=== PATIENT | male | born 1945 | race Caucasian/White ===

== ENCOUNTER 2016-08-29 12:37 | Emergency (ER) | payer OTHER ==
[~2016-08-29] VITALS: Ht 175.3 cm; Wt 91.0 kg
[~2016-08-29 12:37] MED LIST: CHOL1TAB76 PO; LOSA1TAB38 PO; OMEP40CA41 PO; ONDA4TAB7 SL; SIMV20TA2 PO
[2016-08-29 12:40] VITALS: TEMP 36.6; Ht 175.3 cm; Wt 91.0 kg
[2016-08-29] MEDS ORDERED: SODIUM CHLORIDE 0.9% 500ML 500 ML IV STA (13:02)
--- NOTE | 2016-08-29 13:02 | EMERGENCY ROOM VISIT NOTE ---
History Report prepared by Anitha: Clare Peng Under the Supervision of: Dr. Nitin Rodriguez M.D. First contact with patient: 12:51 Chief Complaint: CHEST PAIN Stated Complaint: Chest Pain, HYPERVENTILATION Nursing Triage Summary: Pt was shopping and had sudden chest pain and SOB. Pt went to Urgent Care in [place]. Pt reports diaphoretic and dizziness. Pt was given ASA 324mg and 2 Nitro SL. When EMS arrived, patient hyperventilating with respirations in 40s. Pt reports CP 2/10. Pt now c/o pain in back between shoulders. History of Present Illness The patient is a 71 year old male who presents to the Emergency Room with complaints of persistent chest pain that began today prior to arrival. He currently rates his discomfort as a 2/10 in severity and describes his pain as a pressure. The patient states that he was shopping today and noticed that he was becoming short of breath. He additionally notes that he became clammy and diaphoretic, noting that he just didn't feel right. The patient states that the longer it went the worse he felt and states that he went to see his PCP. He states that while there he was given 324 mg of aspirin and 2 nitroglycerin. The patient states that his chest pain has radiated to his back, but did not describe it as a tearing pain. He states that he has had a stress test in the past, but denies any cardiac history of history of a cardiac catheterization. The patient states that he last ate this morning. Source of History: patient Onset: prior to arrival Position: chest Symptom Intensity: 2/10 Quality: pressure Timing: other (persistent) Associated Symptoms: + SOB, + diaphoresis Note: Associated Symptoms: clammy, pain radiating to his back. Review of Systems See HPI for pertinent positives & negatives. A total of 10 systems reviewed and were otherwise negative. Past Medical & Surgical Medical Problems: (1) Esophageal reflux (2) Kidney stone Family History FH: cancer Social History Smoking Status: Never Smoker Alcohol Use: occasionally Marital Status: Occupation Status: retired Current/Historical Medications Scheduled Cholecalciferol (D 1999), 2,000 INTERUNIT PO HS Losartan Potassium (Cozaar), 50 MG PO QPM Omeprazole (Prilosec), 40 MG PO QAM Simvastatin (Zocor), 20 MG PO QPM Allergies Coded Allergies: Propofol (Verified Allergy, Intermediate, SEIZURE, 08/29/16) Physical Exam Vital Signs Date Time Temp Pulse Resp B/P Pulse Ox O2 Delivery O2 Flow Rate FiO2 08/29/16 15:19 61 16 130/73 98 08/29/16 14:46 58 20 133/71 97 Room Air 08/29/16 13:12 54 20 133/71 99 Room Air 08/29/16 13:11 98 Room Air 08/29/16 12:40 100 Room Air 08/29/16 12:40 36.6 62 24 125/86 100 Room Air 08/29/16 12:40 100 Room Air Physical Exam GENERAL: Patient is a hyperventilating on exam. HEAD: Normocephalic atraumatic EYES: Ocular movements intact pupils equal and react to light OROPHARYNX mucous membranes are moist no exudates present no erythema or edema present NECK: Supple no nuchal rigidity CHEST: Good equal expansion LUNGS: Clear and equal to auscultation CARDIAC: Normal S1 and S2 ABDOMEN: Soft nontender no guarding BACK: No CVA tenderness EXTREMITIES: No pain upon palpation normal muscle strength in all groups no clubbing cyanosis or edema NEURO: Patient is following commands is answering questions appropriately. Alert and oriented x3 Cranial Nerves 2-12 grossly intact Medical Decision & Procedures ER Provider Diagnostic Interpretation: X-ray results as stated below per my interpretation and radiologist interpretation. Other radiology results as stated below per my review and radiologist interpretation: CHEST ONE VIEW PORTABLE CLINICAL HISTORY: Chest pain. Hyperventilation COMPARISON STUDY: No previous studies for comparison. FINDINGS: Lung volumes are normal. There is no pneumothorax or pleural effusion. Lungs are clear. Cardiac size is at the upper limits of normal. There is no evidence of pulmonary edema. IMPRESSION: No acute cardiopulmonary findings. Electronically signed by: Roni Phillips M.D. 08/29/2016 1:57 PM Dictated Date/Time: 08/29/2016 1:[address] ANGIOGRAM OF THE CHEST COMBO CLINICAL HISTORY: Atypical chest pain. COMPARISON STUDY: Chest x-ray dated 08/29/2016. TECHNIQUE: Before and following the IV administration of 93 cc of Optiray 320, CT angiogram of the chest was performed from the thoracic inlet to the upper abdomen utilizing the dissection protocol. Images are reviewed in the axial, sagittal, and coronal planes. 3-D MIPS images are created and assessed. IV contrast was administered without complication. CT DOSE: 1031.43 mGy.cm FINDINGS: Thyroid: Imaged portions of the thyroid gland are normal in size and attenuation. Thoracic aorta: No intramural hematoma is seen on the unenhanced series. The thoracic aorta is normal in caliber and demonstrates standard 3-vessel arch anatomy. No dissection is seen. The arch vessels are widely patent. Pulmonary vasculature: The pulmonary trunk is normal in caliber. There are no central filling defects identified in the pulmonary vessels to suggest pulmonary embolus. Note that this examination was not specifically protocoled to assess for pulmonary emboli. Heart: The heart is top normal in size and without pericardial effusion. The coronary arteries are densely calcified. Lungs and pleural spaces: The lungs and pleural spaces are clear. The trachea and central airways are patent. Mediastinum: There is no mediastinal lymphadenopathy. Amber: Clear. Axillae: There is no axillary lymphadenopathy. Upper abdomen: Partially visualized upper abdominal viscera is within normal limits. Skeletal structures: No lytic or blastic bony lesions are seen. IMPRESSION: 1. There is no aneurysm or dissection involving the thoracic aorta. 2. The lungs are clear. Electronically signed by: Jack Graham M.D. 08/29/2016 2:03 PM Dictated Date/Time: 08/29/2016 1:56 PM Laboratory Results 08/29/16 12:15 Red Blood Count 4.95, Mean Corpuscular Volume 89.5, Mean Corpuscular Hemoglobin 31.3, Mean Corpuscular Hemoglobin Concent 35.0, Mean Platelet Volume 10.5, Neutrophils (%) (Auto) 37.1, Lymphocytes (%) (Auto) 50.6, Monocytes (%) (Auto) 8.8, Eosinophils (%) (Auto) 2.6, Basophils (%) (Auto) 0.7, Neutrophils # (Auto) 2.12, Lymphocytes # (Auto) 2.89, Monocytes # (Auto) 0.50, Eosinophils # (Auto) 0.15, Basophils # (Auto) 0.04 08/29/16 12:15 Test 08/29/16 12:15 08/29/16 12:52 08/29/16 13:14 White Blood Count 5.71 K/uL (4.8-10.8) Red Blood Count 4.95 M/uL (4.7-6.1) Hemoglobin 15.5 g/dL (14.0-18.0) Hematocrit 44.3 % (42-52) Mean Corpuscular Volume 89.5 fL (80-100) Mean Corpuscular Hemoglobin 31.3 pg (25-34) Mean Corpuscular Hemoglobin Concent 35.0 g/dl (32-36) Platelet Count 227 K/uL (130-400) Mean Platelet Volume 10.5 fL (7.4-10.4) Neutrophils (%) (Auto) 37.1 % Lymphocytes (%) (Auto) 50.6 % Monocytes (%) (Auto) 8.8 % Eosinophils (%) (Auto) 2.6 % Basophils (%) (Auto) 0.7 % Neutrophils # (Auto) 2.12 K/uL (1.4-6.5) Lymphocytes # (Auto) 2.89 K/uL (1.2-3.4) Monocytes # (Auto) 0.50 K/uL (0.11-0.59) Eosinophils # (Auto) 0.15 K/uL (0-0.5) Basophils # (Auto) 0.04 K/uL (0-0.2) RDW Standard Deviation 41.5 fL (36.4-46.3) RDW Coefficient of Variation 12.7 % (11.5-14.5) Immature Granulocyte % (Auto) 0.2 % Immature Granulocyte # (Auto) 0.01 K/uL (0.00-0.02) Est Creatinine Clear Calc Drug Dose 47.9 ml/min Estimated GFR () 49.9 Estimated GFR (Non- 43.0 BUN/Creatinine Ratio 15.6 (10-20) Calcium Level 9.1 mg/dl (8.5-10.1) Total Bilirubin 0.4 mg/dl (0.2-1) Direct Bilirubin < 0.1 mg/dl (0-0.2) Aspartate Amino Transf (AST/SGOT) 21 U/L (15-37) Alanine Aminotransferase (ALT/SGPT) 30 U/L (12-78) Alkaline Phosphatase 72 U/L (45-117) Total Creatine Kinase 225 U/L (39-308) Creatine Kinase MB 1.2 ng/ml (0.5-3.6) Creatine Kinase MB Ratio 0.5 (0-3.0) Troponin I < 0.015 ng/ml (0-0.045) Total Protein 7.3 gm/dl (6.4-8.2) Albumin 4.0 gm/dl (3.4-5.0) Lipase 138 U/L (73-393) Bedside Troponin I 0.000 ng/ml (0-0.045) Bedside Hemoglobin 12.9 g/dl (14.0-18.0) Bedside Hematocrit 38 % (42-52) Bedside Sodium 143 mEq/L (135-144) Bedside Potassium 3.5 mEq/L (3.3-5.0) Bedside Chloride 106 mEq/L (101-112) Bedside Total CO2 21 mEq/l (24-31) Anion Gap 20.0 mmol/L (16-25) Bedside Blood Urea Nitrogen 23 mg/dl (7-18) Bedside Creatinine 1.3 mg/dl (0.6-1.3) Bedside Glucose (other) 89 mg/dl (70-99) Bedside Ionized Calcium (Fili) 1.03 mmol/l (1.12-1.32) Labs reviewed by ED physician. Medications Administered Medications (Trade) Dose Ordered Sig/Bharati Route Start Time Stop Time Status Last Admin Dose Admin Sodium Chloride (Nss 500ml) 500 ml @ 999 mls/hr Q31M STAT IV 08/29/16 13:02 08/29/16 13:32 DC 08/29/16 13:11 999 MLS/HR ECG Indication: chest pain, SOB/dyspnea Rate (beats per minute): 59 Rhythm: sinus bradycardia Findings: no acute ischemic change, no ectopy Change: Repeat EKG, sinus bradycardia, 59 beats per minute, no ectopy, no acute ischemia , no change from previous. ED Course 1252: Past medical records reviewed. The patient was evaluated in room B8. A complete history and physical examination was performed. 1302: Ordered Sodium Chloride 500 ml @ 999 mls/hr IV. 1418: I reevaluated the patient and he is feeling 100% better. 1506: Upon reexamination the patient is resting comfortably. I discussed results and treatment plan with the patient. He verbalizes agreement and understanding. The patient is ready for discharge. Medical Decision Differential diagnosis: Etiologies such as cardiac ischemia, aortic dissection, pulmonary embolism, pneumonia, pneumothorax, musculoskeletal, infections, pericarditis, myocarditis , esophageal rupture, gastrointestinal, as well as others were entertained. This is a 71-year-old male who presents emergency department complaining of chest pressure. On my examination the patient is hyperventilating and I believe this played a been component to the his event today. He has a normal EKG upon arrival. The patient had serial troponins drawn and both troponins were labeled as 0. In addition the patient had a further EKG performed which did not show any further changes. Based on these findings as well as the fact that the patient calmed down and he was no longer had any chest pain I felt that the patient was well enough to be discharged home for follow-up with cardiology. In addition the patient also had a CAT scan of his chest which not show any acute abnormality. Patient was in agreement with the treatment plan. Impression Primary Impression: Precordial chest pain Scribe Attestation The scribe's documentation has been prepared under my direction and personally reviewed by me in its entirety. I confirm that the note above accurately reflects all work, treatment, procedures, and medical decision making performed by me. Departure Information Dispostion Home / Self-Care Referrals Maninder Napier M.D. (PCP) Forms HOME CARE DOCUMENTATION FORM, IMPORTANT VISIT INFORMATION, School Instructions, Work Instructions Patient Instructions Chest Pain - [facility], My [facility] Additional Instructions Follow up with DR Chung's office this week No strenuous activity until follow up You have been examined and treated today on an emergency basis only. This is not a substitute for, or an effort to provide, complete comprehensive medical care. It is impossible to recognize and treat all injuries or illnesses in a single emergency department visit. It is therefore important that you follow up closely with Dr Hernandez. Call as soon as possible for an appointment. Thank you for your time and consideration. I look forward to speaking with you again soon. Please don't hesitate to call us if you have any questions.
[2016-08-29 13:11] VITALS: O2SAT 98
[2016-08-29 13:13] LABS: HEMATOCRIT 44.3 % (42-52); MEAN CELL VOLUME 89.5 fL (80-100); MEAN CORPUSCULAR HEMOGLOBIN 31.3 pg (25-34); MEAN PLATELET VOLUME 10.5 fL (7.4-10.4); PLATELET COUNT 227 K/uL (130-400); RED BLOOD COUNT 4.95 M/uL (4.7-6.1); WHITE BLOOD COUNT 5.71 K/uL (4.8-10.8)
[2016-08-29 13:18] LABS: ALT/SGPT 30 U/L (12-78); AST/SGOT 21 U/L (15-37); BLOOD UREA NITROGEN 25 mg/dl (7-18); BUN/CREATININE RATIO 15.6 (10-20); CALCIUM 9.1 mg/dl (8.5-10.1); CARBON DIOXIDE 21 mmol/L (21-32); CHLORIDE 106 mmol/L (98-107); GLUCOSE 93 mg/dl (70-99); POTASSIUM 3.6 mmol/L (3.5-5.1); SODIUM 140 mmol/L (136-145)
[2016-08-29] MEDS ORDERED: LOSA50TA6 PO (13:20)
[2016-08-29 13:24] LABS: ALKALINE PHOSPHATASE 72 U/L (45-117); CKMB/CK RATIO 0.5 (0-3.0)
[2016-08-29 13:30] LABS: ISTAT CREATININE 1.3 mg/dl (0.6-1.3); ISTAT HEMOGLOBIN 12.9 g/dl (14.0-18.0); ISTAT IONIZED CALCIUM 1.03 mmol/l (1.12-1.32)
[2016-08-29 13:34] LABS: BASO % 0.7 %; BASO ABS # 0.04 K/uL (0-0.2); COMPLETE YES; EOS % 2.6 %; IG% 0.2 %; LYMPH % 50.6 %; LYMPH ABS # 2.89 K/uL (1.2-3.4); MONO % 8.8 %; NEUT % 37.1 %
--- NOTE | 2016-08-29 13:58 | DIAGNOSTIC IMAGING REPORT ---
CHEST ONE VIEW PORTABLE CLINICAL HISTORY: Chest pain. Hyperventilation COMPARISON STUDY: No previous studies for comparison. FINDINGS: Lung volumes are normal. There is no pneumothorax or pleural effusion. Lungs are clear. Cardiac size is at the upper limits of normal. There is no evidence of pulmonary edema. IMPRESSION: No acute cardiopulmonary findings. Electronically signed by: Roni Phillips M.D. 08/29/2016 1:57 PM Dictated Date/Time: 08/29/2016 1:57 PM
--- NOTE | 2016-08-29 14:04 | DIAGNOSTIC IMAGING REPORT ---
CT ANGIOGRAM OF THE CHEST COMBO CLINICAL HISTORY: Atypical chest pain. COMPARISON STUDY: Chest x-ray dated 08/29/2016. TECHNIQUE: Before and following the IV administration of 93 cc of Optiray 320, CT angiogram of the chest was performed from the thoracic inlet to the upper abdomen utilizing the dissection protocol. Images are reviewed in the axial, sagittal, and coronal planes. 3-D MIPS images are created and assessed. IV contrast was administered without complication. CT DOSE: 1031.43 mGy.cm FINDINGS: Thyroid: Imaged portions of the thyroid gland are normal in size and attenuation. Thoracic aorta: No intramural hematoma is seen on the unenhanced series. The thoracic aorta is normal in caliber and demonstrates standard 3-vessel arch anatomy. No dissection is seen. The arch vessels are widely patent. Pulmonary vasculature: The pulmonary trunk is normal in caliber. There are no central filling defects identified in the pulmonary vessels to suggest pulmonary embolus. Note that this examination was not specifically protocoled to assess for pulmonary emboli. Heart: The heart is top normal in size and without pericardial effusion. The coronary arteries are densely calcified. Lungs and pleural spaces: The lungs and pleural spaces are clear. The trachea and central airways are patent. Mediastinum: There is no mediastinal lymphadenopathy. Amber: Clear. Axillae: There is no axillary lymphadenopathy. Upper abdomen: Partially visualized upper abdominal viscera is within normal limits. Skeletal structures: No lytic or blastic bony lesions are seen. IMPRESSION: 1. There is no aneurysm or dissection involving the thoracic aorta. 2. The lungs are clear. Electronically signed by: Jack Graham M.D. 08/29/2016 2:03 PM Dictated Date/Time: 08/29/2016 1:56 PM
[2016-08-29 15:19] VITALS: BP 130/73; PULSE 61; O2SAT 98
== END 2016-08-29 15:20 | disposition home or self-care (01) ==
LOC: EDBD 12:37 → C.EDB 12:38
DX: R07.2 Precordial pain (principal); Z87.442 Personal history of urinary calculi; Z80.9 Family history of malignant neoplasm, unspecified

== ENCOUNTER 2017-08-05 13:14 | Observation (INO) | payer OTHER ==
[~2017-08-05] VITALS: Ht 175.3 cm; Wt 93.1 kg
[~2017-08-05 13:14] MED LIST changes: -LOSA1TAB38 PO; +LOSA50TA6 PO; -ONDA4TAB7 SL
[2017-08-05] MEDS ORDERED: ONDANSETRON INJ 2 MG/ML 2 ML VIAL IV STA (14:26)
[2017-08-05] MEDS ORDERED: SODIUM CHLORIDE 0.9% 1000ML 1,000 ML IV STA (14:26)
[2017-08-05 14:52] LABS: BASO % 0.2 %; BASO ABS # 0.03 K/uL (0-0.2); EOS % 0.3 %; EOS ABS # 0.04 K/uL (0-0.5); HEMATOCRIT 44.6 % (42-52); HEMOGLOBIN 15.3 g/dL (14.0-18.0); IG# 0.04 K/uL (0.00-0.02); LYMPH % 8.7 %; LYMPH ABS # 1.29 K/uL (1.2-3.4); MEAN CELL VOLUME 93.1 fL (80-100); MEAN CORPUSCULAR HEMOGLOBIN 31.9 pg (25-34); MEAN CORPUSCULAR HGB CONC 34.3 g/dl (32-36); MEAN PLATELET VOLUME 10.7 fL (7.4-10.4); MONO % 9.7 %; MONO ABS # 1.43 K/uL (0.11-0.59); NEUT % 80.8 %; NEUT ABS # 11.95 K/uL (1.4-6.5); PLATELET COUNT 158 K/uL (130-400); RED CELL DISTRIBUTION WIDTH CV 13.3 % (11.5-14.5); RED CELL DISTRIBUTION WIDTH SD 45.5 fL (36.4-46.3); WHITE BLOOD COUNT 14.78 K/uL (4.8-10.8)
[2017-08-05 15:01] LABS: ALBUMIN 3.5 gm/dl (3.4-5.0); ALT/SGPT 25 U/L (12-78); AST/SGOT 17 U/L (15-37); BLOOD UREA NITROGEN 20 mg/dl (7-18); CALCIUM 9.1 mg/dl (8.5-10.1); CARBON DIOXIDE 28 mmol/L (21-32); GLUCOSE 106 mg/dl (70-99); POTASSIUM 4.5 mmol/L (3.5-5.1); SODIUM 137 mmol/L (136-145)
--- NOTE | 2017-08-05 15:04 | DIAGNOSTIC IMAGING REPORT ---
HEAD WITHOUT CONTRAST (CT) CLINICAL HISTORY: 72 years-old Male presenting with EVALUATE ALTERED MENTAL STATUS/WEAKNESS. TECHNIQUE: Multidetector CT imaging of the head was performed without the use of intravenous contrast. IV contrast: None. A dose lowering technique was used consistent with the principles of ALARA (as low as reasonably achievable). COMPARISON: None. CT DOSE (mGy.cm): The estimated cumulative dose is 638.56 mGycm. 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 Ventricles and sulci normal in size. Brain parenchyma normal in appearance with preserved patricio-white differentiation. No mass effect or midline shift. No hemorrhage or acute territorial infarct. No extra-axial fluid collection. Thickening of the right maxillary sinus. Calvarium intact. IMPRESSION: 1. No acute intracranial abnormality. Electronically signed by: Gopal Krishnan M.D. 08/05/2017 3:03 PM Dictated Date/Time: 08/05/2017 3:01 PM
[2017-08-05 15:06] LABS: PTT PATIENT 25.3 SECONDS (21.0-31.0)
--- NOTE | 2017-08-05 15:14 | DIAGNOSTIC IMAGING REPORT ---
CHEST ONE VIEW PORTABLE CLINICAL HISTORY: EVALUATE ALTERED MENTAL STATUS/WEAKNESS dyspnea COMPARISON STUDY: 08/29/2016 FINDINGS: The bones soft tissues and hemidiaphragms are normal. The cardiomediastinal silhouette is normal. The lungs are clear. The pulmonary vasculature is normal. IMPRESSION: Negative chest. The above report was generated using voice recognition software. It may contain grammatical, syntax or spelling errors. Electronically signed by: Charles Rubio M.D. 08/05/2017 3:13 PM Dictated Date/Time: 08/05/2017 3:12 PM
[2017-08-05 15:18] LABS: ALKALINE PHOSPHATASE 89 U/L (45-117); TOTAL PROTEIN 7.7 gm/dl (6.4-8.2)
[2017-08-05] MEDS ORDERED: ACETAMINOPHEN 325 MG TAB PO PRN (16:45)
[2017-08-05] MEDS ORDERED: ONDANSETRON INJ 2 MG/ML 2 ML VIAL IV PRN (16:45)
[2017-08-05] MEDS ORDERED: NITROGLYCERIN 0.4 MG SL PER TAB CHARGE SL PRN (16:45)
[2017-08-05] MEDS ORDERED: LOSA1TAB38 PO (17:01)
--- NOTE | 2017-08-05 18:10 | History and Physical ---
History & Physical Date & Time of Service: Aug 05, 2017 at 17:02 Chief Complaint: Syncope Primary Care Physician: Maninder Napier M.D. History of Present Illness Source: patient, family, clinic records, hospital records Pt is 72 y/o M with PMH HTN, dyslipidemia, GERD, CKD III who presented to ER with c/o syncope. Pt states around noon today he was sitting in chair when he started to feel lightheaded, generalized weakness, hot, sweaty, and felt like a "band squeezing around my head, but not a GARNER". These symptoms reported for couple of minutes. His said she stepped away and her son saw pt pass out and slump over the table while sitting in chair and are unsure if pt vomited as they heard "gurgling" sound. States lasted approx a minute then pt regained consciousness and sat up and it is reported he had another syncopal episode and slumped over in chair. When pt regained consciousness they put him supine on floor and report he was pale and sweaty and confused. Denies any noted convulsions or shaking. Pt reports doesn't remember passing out. Denies falls or hitting head or hx head injury. Denies loss control bowel/bladder, biting tongue. Denies hx syncope or seizures. He ate breakfast this morning. Denies coughing/vomiting episodes prior to syncope. Pt reports past 5 days with purulent rhinorrhea, nasal congestion, sore throat, and cough. reports appetite been decreased with his URI symptoms. Reports with URI symptoms also and was around granddaughters with strep throat. He took OTC Tylenol flu/cold medicine, didn't have any today. Denies any other OTC meds or supplements. Denies ETOH or drug use, SOB, CP, palpitations. Denies FH seizures/syncope or FH sudden at young age. Denies fever/chills, N/D/C, vision changes, neck pain, CP, SOB, orthopnea, palpitations, hemoptysis, otalgia, abdominal pain, paresthesias, extremity edema, rashes, urinary symptoms. Denies hx influenza vaccine this season. In ER afebrile, P:65, BP: 119/66 - 131/73. Glucose: 103, WBC: 14. Cr: 1.7 ( baseline 1.6). negative troponin. CXR: negative. CT head negative. EKG: NSR 63, no ST elevations. Pt denies any current symptoms and no recurrent syncope episodes since ER arrival. given 1L NSS Hx stress echo 09/2016 - no ischemia, EF: 55-60%, normal LV wall motion, mild aortic valve regurgitation Past Medical/Surgical History Medical Problems: (1) CKD (chronic kidney disease), stage III Status: Chronic (2) Esophageal reflux Status: Chronic (3) HTN (hypertension) Status: Chronic (4) Hyperlipidemia Status: Chronic (5) Kidney stone Status: Chronic (6) Renal colic on right side Status: Resolved (7) Right ureteral stone Status: Resolved (8) Right ureteral stone Status: Resolved Surgical Problems: (1) Hx of appendectomy Status: Resolved (2) Hx of mastectomy Permanent Comment: for gynecomastia - 1966 Status: Resolved (3) Hx of rotator cuff surgery Status: Resolved Family History Alzheimer's disease MOTHER Cardiac disorder BROTHER (A-fib, cardiomyopathy) Diabetes mellitus FATHER BROTHER FH: cancer BROTHER (colon CA - age 70's) GRANDMOTHER (colon CA) Hypertension FATHER Social History Smoking Status: Never Smoker Smokeless Tobacco Use: No Alcohol Use: none Drug Use: none Marital Status: Occupational Status: retired Allergies Coded Allergies: Propofol (Verified Allergy, Intermediate, SEIZURE, 08/05/17) Home Medications Scheduled Cholecalciferol (D 1999), 2,000 INTERUNIT PO HS Losartan Potassium (Cozaar), 0.5 TAB PO DAILY Omeprazole (Prilosec), 40 MG PO QAM Simvastatin (Zocor), 20 MG PO QPM Review of Systems Constitutional: No weight loss Eyes: No worsening of vision, No eye pain, No redness, No discharge, No diplopia ENT: + problem reported (see HPI), No hearing loss, No unusual epistaxis, No trouble swallowing Respiratory: + problem reported (see HPI) Cardiovascular: No chest pain, No orthopnea, No PND, No edema, No palpitations Abdomen: No GI bleeding Musculoskeletal: No joint pain, No muscle pain, No swelling, No calf pain Genitourinary - Male: No hematuria, No dysuria, No urinary frequency, No urinary urgency, No urinary hesitancy, No urinary retention, No urinary incontinence Neurologic: No numbness/tingling, No vertigo Psychiatric: No depression symptoms, No anxiety Endocrine: No excessive thirst, No excessive urination Hematologic / Lymphatic: No abnormal bleeding/bruising, No clotting problems, No night sweats Integumentary: No rash, No itch Physical Exam Vital Signs Date Time Temp Pulse Resp B/P (MAP) Pulse Ox O2 Delivery O2 Flow Rate FiO2 08/05/17 15:40 67 20 131/73 97 Room Air 08/05/17 14:42 65 128/67 71 144/79 72 134/74 08/05/17 13:34 70 08/05/17 13:27 98 Room Air 08/05/17 13:27 37.2 72 16 119/66 98 Room Air General Appearance: WD/WN, no apparent distress Head: normocephalic, atraumatic Eyes: normal inspection, PERRL, EOMI, sclerae normal ENT: hearing grossly normal, + pertinent finding (Bilateral canals with cerumen , partial visualization TM's and non-bulging, non-erythematous. no significant rhinorrhea, no epistaxis. pharynx with slight erythema, no exudate, uvula midline. tongue without lacerations or bleeding, mucous membranes moist) Neck: supple, no adenopathy, no JVD, no carotid bruits, trachea midline, + pertinent finding (non-tender, ROM intact) Respiratory/Chest: chest non-tender, lungs clear, normal breath sounds, no respiratory distress, no accessory muscle use Cardiovascular: regular rate, rhythm, no edema, no murmur, normal peripheral pulses Abdomen/GI: normal bowel sounds, non tender, soft Back: normal inspection, no CVA tenderness Extremities/Musculoskelatal: normal inspection, no calf tenderness, normal capillary refill, normal range of motion, non-tender, pelvis stable 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, alert, normal mood/affect, oriented x 3 Skin: normal color, warm/dry, no rash Diagnostics Laboratory Results Results Past 24 Hours Test 08/05/17 13:35 08/05/17 14:34 08/05/17 14:45 Range/Units White Blood Count 14.78 4.8-10.8 K/uL Red Blood Count 4.79 4.7-6.1 M/uL Hemoglobin 15.3 14.0-18.0 g/dL Hematocrit 44.6 42-52 % Mean Corpuscular Volume 93.1 80-100 fL Mean Corpuscular Hemoglobin 31.9 25-34 pg Mean Corpuscular Hemoglobin Concent 34.3 32-36 g/dl Platelet Count 158 130-400 K/uL Mean Platelet Volume 10.7 7.4-10.4 fL Neutrophils (%) (Auto) 80.8 % Lymphocytes (%) (Auto) 8.7 % Monocytes (%) (Auto) 9.7 % Eosinophils (%) (Auto) 0.3 % Basophils (%) (Auto) 0.2 % Neutrophils # (Auto) 11.95 1.4-6.5 K/uL Lymphocytes # (Auto) 1.29 1.2-3.4 K/uL Monocytes # (Auto) 1.43 0.11-0.59 K/uL Eosinophils # (Auto) 0.04 0-0.5 K/uL Basophils # (Auto) 0.03 0-0.2 K/uL RDW Standard Deviation 45.5 36.4-46.3 fL RDW Coefficient of Variation 13.3 11.5-14.5 % Immature Granulocyte % (Auto) 0.3 % Immature Granulocyte # (Auto) 0.04 0.00-0.02 K/uL Prothrombin Time 10.0 9.0-12.0 SECONDS Prothromb Time International Ratio 1.0 0.9-1.1 Activated Partial Thromboplast Time 25.3 21.0-31.0 SECONDS Partial Thromboplastin Ratio 1.0 D-Dimer 320 0-500 ug/L FEU Sodium Level 137 136-145 mmol/L Potassium Level 4.5 3.5-5.1 mmol/L Chloride Level 105 98-107 mmol/L Carbon Dioxide Level 28 21-32 mmol/L Anion Gap 4.0 3-11 mmol/L Blood Urea Nitrogen 20 7-18 mg/dl Creatinine 1.70 0.60-1.40 mg/dl Est Creatinine Clear Calc Drug Dose 45.1 ml/min Estimated GFR () 46.0 Estimated GFR (Non- 39.7 BUN/Creatinine Ratio 12.0 10-20 Random Glucose 106 70-99 mg/dl Calcium Level 9.1 8.5-10.1 mg/dl Magnesium Level 2.4 1.8-2.4 mg/dl Total Bilirubin 0.6 0.2-1 mg/dl Direct Bilirubin < 0.1 0-0.2 mg/dl Aspartate Amino Transf (AST/SGOT) 17 15-37 U/L Alanine Aminotransferase (ALT/SGPT) 25 12-78 U/L Alkaline Phosphatase 89 45-117 U/L Troponin I < 0.015 0-0.045 ng/ml Total Protein 7.7 6.4-8.2 gm/dl Albumin 3.5 3.4-5.0 gm/dl Thyroid Stimulating Hormone (TSH) 0.584 0.300-4.500 uIu/ml Bedside Glucose 84 70-99 mg/dl Urine Color DK YELLOW Urine Appearance CLEAR CLEAR Urine pH 5.0 4.5-7.5 Urine Specific Byron 1.030 1.000-1.030 Urine Protein 1+ NEG Urine Glucose (UA) NEG NEG Urine Ketones TRACE NEG Urine Occult Blood NEG NEG Urine Nitrite NEG NEG Urine Bilirubin NEG NEG Urine Urobilinogen NEG NEG Urine Leukocyte Esterase NEG NEG Urine WBC (Auto) 1-5 0-5 /hpf Urine RBC (Auto) 0-4 0-4 /hpf Urine Hyaline Casts (Auto) 10-30 0-5 /lpf Urine Epithelial Cells (Auto) 10-20 0-5 /lpf Urine Bacteria (Auto) NEG NEG Urine Pathogenic Casts 0-3 GRANULAR CASTS 0 /lpf Urine Sperm (Auto) PRESENT NOT PRESENT Diagnostic Radiology CXR: IMPRESSION: Negative chest. HEAD CT: IMPRESSION: 1. No acute intracranial abnormality. EKG EKG: NSR, rate 63, no ST elevations EKG read by live study manager: Normal sinus rhythm Left axis deviation Abnormal ECG When compared with ECG of 29-AUG-2016 14:41, No significant change was found Confirmed by Roby Valdivia ([id number]) on 08/05/2017 5:25:18 PM Impression Assessment and Plan SYNCOPE Pt with syncope x 2 during seated position with questionable vomiting with post confusion and prodrome lightheaded, diaphoresis. No CP, palpitations, no incontinence. EKG: NSR, rate 63. negative troponin. negative CXR. negative CT Head. WBC: 14. No significant orthostatic hypotension, glucose: 106. hx stress echo 09/2016: negative ischemia, EF: 55-60%, mild aortic valve regurg. -tele to monitor for any arrhythmias -trend cardiac enzymes -repeat EKG in am -NSS 75ml/hr -continue to monitor -will hold on further neuro imaging at this time URI Pt with cough, sore throat, rhinorrhea x 4-5 days with ill contacts with URI symptoms. WBC: 14. No CP, SOB, no adventitious breath sounds on exam. Negative CXR. suspect viral URI, however continue to monitor with possible vomiting episode today with syncope. -pending influenza swab -pending strep swab -cbc, prp in am HTN -continue losartan DYSLIPIDEMIA Lipid panel 05/22/17: total: 188, LDL: 91, HDL: 34, Triglycerides: 317 -continue simvastatin GERD -continue PPI CKD III Cr: 1.7 (baseline 1.6) -continue to monitor -avoid nephrotoxic agents when possible DVT PROPHYLAXIS -lovenox DISPOSITION -admit tele -Full Code as per discussion with pt -Follows with Dr Napier for routine care Pt was seen with Dr Ling. See addendum Level of Care Telemetry Resuscitation Status FULL RESUSCITATION VTE Prophylaxis VTE Risk Assessment Done? Y/N: Yes Risk Level: Moderate Given or contraindicated: Enoxaparin (Lovenox)SQ Note ATTENDING ADDENDUM Record reviewed. Patient interviewed and examined. Care coordinated with Josefa Chaudhari PA-C. Please refer to her documentation for patient's history. Briefly, 72 YO male with history of hypertension and CKD III. 2 syncopal episodes today witnessed by his family. Episodes associated with diaphoresis and transient confusion. No apparent seizure activity. First episode was associated with vomiting. Recent pharyngitis, rhinorrhea, cough treated with nonprescription cold / cough medication EXAM: General- no distress VS- as noted HEENT- anicteric; mild pharyngeal erythema without exudate Neck- supple Lungs- clear to A&P Heart- RRR Abdomen- + BS, soft, nontender Extremities- no pretibial edema or calf tenderness Neuro- alert, oriented; PERRL, EOMI; no facial palsy; no dysarthria; motor strength upper and lower extremities 5/5; patellar DTR's 1/2 bilat; plantar reflexes downgoing DATA: WBC 14,780 Hgb 15.3 BUN 20, creatinine 1.7. Trop < 0.015. Other lab studies as noted. CXR neg. CT head neg except for thickening of right maxillary sinus. EKG performed at 13:35 reviewed and demonstrated NSR at 63 / minute, left axis deviation, no acute ST or T-wave changes. ASSESSMENT AND PLAN: Syncope, likely vasovagal. Monitor for arrhythmias. May be somewhat volume depleted. CKD III with baseline creatinine of 1.4 - 1.6; creatine today 1.7. Received IV fluids. Recent pharyngitis, cough. 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 Group A Strep screen negative. Please refer to GO Escalante's documentation for discussion of other issues. Pk Ling MD . Additional Copies To Maninder Napier M.D.
[2017-08-05 18:57] VITALS: BP_SYST 151; BP_SYST 153; BP_SYST 195; BP_DIAS 81; BP_DIAS 82; BP_DIAS 84; PULSE 67; TEMP 37.2; O2SAT 97
[2017-08-05] MEDS ORDERED: SODIUM CHLORIDE 0.9% 1000ML 1,000 ML IV SCH (19:00)
[2017-08-05 19:04] VITALS: BMI 27.7
[2017-08-05 19:08] VITALS: BMI 30.2
[2017-08-05 19:13] VITALS: BP 153/82; PULSE 67; TEMP 37.2; O2SAT 97; Ht 175.3 cm; Wt 93.1 kg
[2017-08-05 20:01] LABS: INFLUENZA B ANTIGEN Neg for Influ B (NEG)
[2017-08-05 20:15] LABS: CKMB < 0.5 ng/ml (0.5-3.6)
[2017-08-05 20:55] LABS: INFLUENZA A PCR Neg for Influ A (NEG); INFLUENZA B PCR Neg for Influ B (NEG)
[2017-08-05] MEDS ORDERED: SIMVASTATIN 20 MG TAB PO SCH (21:00)
[2017-08-05] MEDS ORDERED: CHOLECALCIFEROL 1000 INTER.UNIT TAB PO SCH (21:00)
[2017-08-05] MEDS ORDERED: ENOXAPARIN 40 MG/0.4 ML SYR SC SCH (21:00)
--- NOTE | 2017-08-05 21:29 | EMERGENCY ROOM VISIT NOTE ---
History Report prepared by Anitha: Lynsey Jenkins Under the Supervision of: Dr. David Schaefer D.O. First contact with patient: 14:18 Chief Complaint: SYNCOPE Stated Complaint: SYNCOPE Nursing Triage Summary: pt's reports pt was feeling dizzy sitting in chair she was going to start car totake him home and son started say dad, dad, pt had syncopal episode head on desk and pt was gurgling. pt's head moved back and still gurgling placed on floor and pt was shakey. pt prior to syncopal episode was syaimng he felt dizzy and felt like band around head, he was feeling hot. unsure about fever but hasa had cold sx with cough and congestion. 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 History of Present Illness The patient is a 72 year old male who presents to the Emergency Room with complaints of an episode of syncope occurring prior to arrival. The patient's states that he was sitting at a desk and told her he felt dizzy. She states that she told her son to get the car ready and they were just going to go home. She states that he has been getting over a cold with cough, sore throat , and congestion for the past 4 days. The states that when she took a few steps away, he lost consciousness. She reports that he vomited while out. She reports that they sat him back up in the chair, his eyes opened, and he passed out again. The states that at this time her son and her put him on the floor. She states that when he came to he was pale, diaphoretic, felt hot, felt clammy, was disoriented, and did not remember what happened. She states that she made him stay in the floor till EMS arrived. The patient notes that this has never happened before. He states that he remembers right before it happened he felt really hot and like there was a band around his head. The patient complains of being fatigued over the past few days. The patient denies headache , chest pain, neck pain, nausea, diarrhea, and urinary symptoms. Source of History: patient Onset: prior to arrival Position: other (global) Quality: other (disoriented) Timing: other (episode) Associated Symptoms: + LOC, + diaphoresis, + sorethroat, + cough, + vomiting , + fatigue, No headache, No neck pain, No chest pain, No SOB, No nausea, No diarrhea, No urinary symptoms Note: The patient complains of dizziness and congestion. The complains of the patient feeling clammy, looking pale, being disoriented, and feeling warm. Review of Systems See HPI for pertinent positives & negatives. A total of 10 systems reviewed and were otherwise negative. Past Medical & Surgical Medical Problems: (1) CKD (chronic kidney disease), stage III (2) Esophageal reflux (3) HTN (hypertension) (4) Hyperlipidemia (5) Kidney stone (6) Renal colic on right side (7) Right ureteral stone (8) Right ureteral stone Surgical Problems: (1) Hx of appendectomy (2) Hx of mastectomy (3) Hx of rotator cuff surgery Family History FH: cancer Social History Smoking Status: Never Smoker Alcohol Use: occasionally Marital Status: Housing Status: lives with significant other Occupation Status: retired Current/Historical Medications Scheduled Cholecalciferol (D 1999), 2,000 INTERUNIT PO HS Losartan Potassium (Cozaar), 0.5 TAB PO DAILY Omeprazole (Prilosec), 40 MG PO QAM Simvastatin (Zocor), 20 MG PO QPM Allergies Coded Allergies: Propofol (Verified Allergy, Intermediate, SEIZURE, 08/05/17) Physical Exam Vital Signs Date Time Temp Pulse Resp B/P (MAP) Pulse Ox O2 Delivery O2 Flow Rate FiO2 08/05/17 16:31 129/75 08/05/17 16:14 64 97 08/05/17 16:00 134/74 08/05/17 15:44 60 94 08/05/17 15:40 67 20 131/73 97 Room Air 08/05/17 15:39 131/73 08/05/17 14:42 65 128/67 71 144/79 72 134/74 08/05/17 14:36 134/74 08/05/17 14:35 128/67 08/05/17 14:30 128/68 08/05/17 14:14 66 5 94 08/05/17 14:00 127/70 08/05/17 13:44 66 14 96 08/05/17 13:34 70 08/05/17 13:31 127/76 08/05/17 13:27 98 Room Air 08/05/17 13:27 37.2 72 16 119/66 98 Room Air Physical Exam GENERAL: Sitting up in bed, alert, well appearing, no distress, non-toxic HEAD: Normocephalic. Atraumatic. EYE EXAM: normal conjunctiva. OROPHARYNX: no exudate, no erythema, lips, buccal mucosa, and tongue normal and mucous membranes are moist NECK: supple, no nuchal rigidity, no adenopathy, non-tender LUNGS: Clear to auscultation. Normal chest wall mechanics HEART: no murmurs, S1 normal and S2 normal ABDOMEN: abdomen soft, non-tender, normo-active bowel sounds, no masses, no rebound or guarding. BACK: Back is symmetrical on inspection and there is no deformity, no midline tenderness, no CVA tenderness. SKIN: no rashes and no bruising UPPER EXTREMITIES: upper extremities are grossly normal. LOWER EXTREMITIES: No pitting edema. NEURO EXAM: Normal sensorium, cranial nerves II-XII intact, normal speech, no weakness of arms, no weakness of legs. No drift. Finger to nose intact. Gross sensation intact. Rapid alternating movements of upper extremities intact. Medical Decision & Procedures ER Provider Diagnostic Interpretation: Radiology results as stated below per my review and the radiologist's interpretation: CHEST ONE VIEW PORTABLE CLINICAL HISTORY: EVALUATE ALTERED MENTAL STATUS/WEAKNESS dyspnea COMPARISON STUDY: 08/29/2016 FINDINGS: The bones soft tissues and hemidiaphragms are normal. The cardiomediastinal silhouette is normal. The lungs are clear. The pulmonary vasculature is normal. IMPRESSION: Negative chest. The above report was generated using voice recognition software. It may contain grammatical, syntax or spelling errors. Electronically signed by: Charles Rubio M.D. 08/05/2017 3:13 PM Dictated Date/Time: 08/05/2017 3:12 PM HEAD WITHOUT CONTRAST (CT) CLINICAL HISTORY: 72 years-old Male presenting with EVALUATE ALTERED MENTAL STATUS/WEAKNESS. TECHNIQUE: Multidetector CT imaging of the head was performed without the use of intravenous contrast. IV contrast: None. A dose lowering technique was used consistent with the principles of ALARA (as low as reasonably achievable). COMPARISON: None. CT DOSE (mGy.cm): The estimated cumulative dose is 638.56 mGycm. FINDINGS: Napper Tender topogram: Unremarkable. Ventricles and sulci normal in size. Brain parenchyma normal in appearance with preserved patricio-white differentiation. No mass effect or midline shift. No hemorrhage or acute territorial infarct. No extra-axial fluid collection. Thickening of the right maxillary sinus. Calvarium intact. IMPRESSION: 1. No acute intracranial abnormality. Electronically signed by: Gopal Krishnan M.D. 08/05/2017 3:03 PM Dictated Date/Time: 08/05/2017 3:01 PM Laboratory Results 08/05/17 13:35 Red Blood Count 4.79, Mean Corpuscular Volume 93.1, Mean Corpuscular Hemoglobin 31.9, Mean Corpuscular Hemoglobin Concent 34.3, Mean Platelet Volume 10.7, Neutrophils (%) (Auto) 80.8, Lymphocytes (%) (Auto) 8.7, Monocytes (%) (Auto) 9.7, Eosinophils (%) (Auto) 0.3, Basophils (%) (Auto) 0.2, Neutrophils # (Auto) 11.95, Lymphocytes # (Auto) 1.29, Monocytes # (Auto) 1.43, Eosinophils # (Auto) 0.04, Basophils # (Auto) 0.03 08/05/17 13:35 Test 08/05/17 13:35 08/05/17 14:34 08/05/17 14:45 White Blood Count 14.78 K/uL (4.8-10.8) Red Blood Count 4.79 M/uL (4.7-6.1) Hemoglobin 15.3 g/dL (14.0-18.0) Hematocrit 44.6 % (42-52) Mean Corpuscular Volume 93.1 fL (80-100) Mean Corpuscular Hemoglobin 31.9 pg (25-34) Mean Corpuscular Hemoglobin Concent 34.3 g/dl (32-36) Platelet Count 158 K/uL (130-400) Mean Platelet Volume 10.7 fL (7.4-10.4) Neutrophils (%) (Auto) 80.8 % Lymphocytes (%) (Auto) 8.7 % Monocytes (%) (Auto) 9.7 % Eosinophils (%) (Auto) 0.3 % Basophils (%) (Auto) 0.2 % Neutrophils # (Auto) 11.95 K/uL (1.4-6.5) Lymphocytes # (Auto) 1.29 K/uL (1.2-3.4) Monocytes # (Auto) 1.43 K/uL (0.11-0.59) Eosinophils # (Auto) 0.04 K/uL (0-0.5) Basophils # (Auto) 0.03 K/uL (0-0.2) RDW Standard Deviation 45.5 fL (36.4-46.3) RDW Coefficient of Variation 13.3 % (11.5-14.5) Immature Granulocyte % (Auto) 0.3 % Immature Granulocyte # (Auto) 0.04 K/uL (0.00-0.02) Prothrombin Time 10.0 SECONDS (9.0-12.0) Prothromb Time International Ratio 1.0 (0.9-1.1) Activated Partial Thromboplast Time 25.3 SECONDS (21.0-31.0) Partial Thromboplastin Ratio 1.0 D-Dimer 320 ug/L FEU (0-500) Anion Gap 4.0 mmol/L (3-11) Est Creatinine Clear Calc Drug Dose 45.1 ml/min Estimated GFR () 46.0 Estimated GFR (Non- 39.7 BUN/Creatinine Ratio 12.0 (10-20) Calcium Level 9.1 mg/dl (8.5-10.1) Magnesium Level 2.4 mg/dl (1.8-2.4) Total Bilirubin 0.6 mg/dl (0.2-1) Direct Bilirubin < 0.1 mg/dl (0-0.2) Aspartate Amino Transf (AST/SGOT) 17 U/L (15-37) Alanine Aminotransferase (ALT/SGPT) 25 U/L (12-78) Alkaline Phosphatase 89 U/L (45-117) Total Protein 7.7 gm/dl (6.4-8.2) Albumin 3.5 gm/dl (3.4-5.0) Thyroid Stimulating Hormone (TSH) 0.584 uIu/ml (0.300-4.500) Bedside Glucose 84 mg/dl (70-99) Urine Color DK YELLOW Urine Appearance CLEAR (CLEAR) Urine pH 5.0 (4.5-7.5) Urine Specific [place] 1.030 (1.000-1.030) Urine Protein 1+ (NEG) Urine Glucose (UA) NEG (NEG) Urine Ketones TRACE (NEG) Urine Occult Blood NEG (NEG) Urine Nitrite NEG (NEG) Urine Bilirubin NEG (NEG) Urine Urobilinogen NEG (NEG) Urine Leukocyte Esterase NEG (NEG) Urine WBC (Auto) 1-5 /hpf (0-5) Urine RBC (Auto) 0-4 /hpf (0-4) Urine Hyaline Casts (Auto) 10-30 /lpf (0-5) Urine Epithelial Cells (Auto) 10-20 /lpf (0-5) Urine Bacteria (Auto) NEG (NEG) Urine Pathogenic Casts 0-3 GRANULAR CASTS /lpf (0) Urine Sperm (Auto) PRESENT (NOT PRESENT) Laboratory results per my review. Medications Administered Medications (Trade) Dose Ordered Sig/Bharati Route Start Time Stop Time Status Last Admin Dose Admin Sodium Chloride 1,000 ml @ 999 mls/hr Q1H1M STAT IV 08/05/17 14:26 08/05/17 15:26 DC 08/05/17 15:40 999 MLS/HR ECG Indication: syncope Rate (beats per minute): 63 Rhythm: sinus rhythm Findings: left axis deviation, no ectopy, other (normal intervals) ED Course ED COURSE: Vital signs were reviewed and showed normal vitals. The patients medical record was reviewed The above diagnostic studies were performed and reviewed. ED treatments and interventions as stated above. 1419: The patient was evaluated in room C4. A complete history and physical examination was performed. 1426: Ordered Zofran Inj 4 mg IV, NSS 1000 ml @ 99 mls/hr IV. 1545: Upon reevaluation, the patient is resting comfortably.I discussed my findings with the patient and he understands and agrees with the treatment plan. 1556: I reviewed the patient's case with the Madeline HADDAD. They will evaluate the patient for further management. Based on the patients age, coexisting illnesses, exam and lab findings the decision to treat as an inpatient was made. The patient remained stable while under my care. The patient will be evaluated for further management. Medical Decision Differential diagnosis includes etiologies such as vasovagal event, infection, hypoglycemia, electrolyte abnormalities, cardiac sources, intracerebral event, toxicologic, neurologic, as well as others were entertained. Patient is a 72-year-old male who presents to ER for 2 episodes of syncope. He has never had this before. Following passing out he had several episodes of vomiting. Patient is currently back to his baseline. No history of seizure and there is no shaking during this episode. It was witnessed. CBC shows a mild leukocytosis. Could be secondary to vomiting. BMP with a creatinine 1.7. LFTs, bilirubin and troponin was normal. UA was negative along with influenza. CT head and chest x-ray was unremarkable. EKG was nondiagnostic. Based on symptoms I did discuss with internal medicine for observation with his age and 2 episodes syncope. Medication Reconcilliation Current Medication List: was personally reviewed by me Blood Pressure Screening Patient's blood pressure: Normal blood pressure Blood pressure disposition: Did not require urgent referral Consults Time Called: 1540 Consulting Physician: Madeline HADDAD Returned Call: 1555 I reviewed the patient's case with the Madeline HADDAD. They will evaluate the patient for further management. Impression Primary Impression: Syncope Scribe Attestation The scribe's documentation has been prepared under my direction and personally reviewed by me in its entirety. I confirm that the note above accurately reflects all work, treatment, procedures, and medical decision making performed by me. Departure Information Dispostion Being Evaluated By Hospitalist Referrals Maninder Napier M.D. (PCP) Patient Instructions My [facility] Problem Qualifiers Primary Impression: Syncope Syncope type: unspecified Qualified Codes: R55 - Syncope and collapse
[2017-08-05] MEDS ORDERED: IV FLUIDS COMPLETED PRN (21:45)
[2017-08-05 23:04] VITALS: BP_SYST 128; BP_SYST 151; BP_SYST 155; BP_DIAS 79; BP_DIAS 83; PULSE 74; PULSE 80; PULSE 98; TEMP 37.5; O2SAT 91
[2017-08-06] VITALS (7 sets, daily range): BP systolic 126–156; BP diastolic 68–83; PULSE 56–72; TEMP 36.8–37.7; O2SAT 94–96
[2017-08-06 05:46] LABS: BASO % 0.3 %; BASO ABS # 0.03 K/uL (0-0.2); EOS % 1.2 %; EOS ABS # 0.14 K/uL (0-0.5); HEMATOCRIT 42.2 % (42-52); HEMOGLOBIN 14.2 g/dL (14.0-18.0); IG# 0.05 K/uL (0.00-0.02); LYMPH % 18.5 %; LYMPH ABS # 2.13 K/uL (1.2-3.4); MEAN CELL VOLUME 93.6 fL (80-100); MEAN CORPUSCULAR HEMOGLOBIN 31.5 pg (25-34); MEAN CORPUSCULAR HGB CONC 33.6 g/dl (32-36); MONO % 7.6 %; MONO ABS # 0.87 K/uL (0.11-0.59); PLATELET COUNT 153 K/uL (130-400); RED CELL DISTRIBUTION WIDTH CV 13.4 % (11.5-14.5); RED CELL DISTRIBUTION WIDTH SD 45.9 fL (36.4-46.3); WHITE BLOOD COUNT 11.52 K/uL (4.8-10.8)
[2017-08-06 06:10] LABS: CALCIUM 8.5 mg/dl (8.5-10.1); CREATININE 1.44 mg/dl (0.60-1.40); POTASSIUM 4.5 mmol/L (3.5-5.1)
[2017-08-06] MEDS ORDERED: PANTOprazole SOD 40 MG TAB PO SCH (09:00)
[2017-08-06] MEDS ORDERED: LOSARTAN POTASSIUM 50 MG TAB PO SCH (09:00)
--- NOTE | 2017-08-06 17:54 | Progress Note ---
Medicine Progress Note Date & Time of Visit: Aug 06, 2017 at 09:38. Subjective Pt was seen and examined Lying in bed with no distress Pt said that he feels fine He was walking in the hallway with no discomfort Denies any chest pain, palpitation, dizziness and SOB Objective Last 8 Hrs Date Time Temp Pulse Resp B/P (MAP) Pulse Ox O2 Delivery O2 Flow Rate FiO2 08/06/17 17:21 37.1 66 20 95 Room Air 08/06/17 16:02 Room Air 08/06/17 15:30 37.1 61 20 135/68 (90) 95 Room Air 66 133/70 (91) 137/69 (91) 08/06/17 12:00 94 Room Air 08/06/17 11:58 36.8 56 20 126/74 (91) 96 Room Air 56 Physical Exam: General- No acute distress Head- atraumatic Eyes- PERRL, EOMI ENT- oropharynx clear Neck- supple, no JVD Lungs- clear to auscultation Heart- regular rhythm Abdomen- normal bowel sounds, soft Extremities- no calf tenderness Neuro- alert, oriented x 3; PERRL, EOMI; no facial palsy; no dysarthria Skin- warm & dry Laboratory Results: Last 24 Hours Test 08/05/17 19:02 08/05/17 19:33 08/06/17 01:31 08/06/17 05:29 Influenza Type A (RT-PCR) Neg for Influ A Influenza Type A Antigen Neg for Influ A Influenza Type B Antigen Neg for Influ B Influenza Type B (RT-PCR) Neg for Influ B Total Creatine Kinase 73 U/L Creatine Kinase MB < 0.5 ng/ml Creatine Kinase MB Ratio Troponin I < 0.015 ng/ml < 0.015 ng/ml White Blood Count 11.52 K/uL Red Blood Count 4.51 M/uL Hemoglobin 14.2 g/dL Hematocrit 42.2 % Mean Corpuscular Volume 93.6 fL Mean Corpuscular Hemoglobin 31.5 pg Mean Corpuscular Hemoglobin Concent 33.6 g/dl Platelet Count 153 K/uL Mean Platelet Volume 10.0 fL Neutrophils (%) (Auto) 72.0 % Lymphocytes (%) (Auto) 18.5 % Monocytes (%) (Auto) 7.6 % Eosinophils (%) (Auto) 1.2 % Basophils (%) (Auto) 0.3 % Neutrophils # (Auto) 8.30 K/uL Lymphocytes # (Auto) 2.13 K/uL Monocytes # (Auto) 0.87 K/uL Eosinophils # (Auto) 0.14 K/uL Basophils # (Auto) 0.03 K/uL RDW Standard Deviation 45.9 fL RDW Coefficient of Variation 13.4 % Immature Granulocyte % (Auto) 0.4 % Immature Granulocyte # (Auto) 0.05 K/uL Sodium Level 139 mmol/L Potassium Level 4.5 mmol/L Chloride Level 106 mmol/L Carbon Dioxide Level 29 mmol/L Anion Gap 4.0 mmol/L Blood Urea Nitrogen 19 mg/dl Creatinine 1.44 mg/dl Est Creatinine Clear Calc Drug Dose 53.0 ml/min Estimated GFR () 56.2 Estimated GFR (Non- 48.5 BUN/Creatinine Ratio 12.9 Random Glucose 105 mg/dl Calcium Level 8.5 mg/dl Assessment & Plan SYNCOPE Mostly vasovagal CT head showed no acute intracranial abnormality. No arrhythmia on telemonitor Troponin negative Clinically stable URI Flu test negative strep swab negative WBC trending down Symptoms improved HTN -continue losartan Diarrhea Improved On IVF DYSLIPIDEMIA Lipid panel 05/22/17: total: 188, LDL: 91, HDL: 34, Triglycerides: 317 -continue simvastatin GERD -continue PPI CKD III Cr: 1.7 (baseline 1.6) Creatine improved to 1.4 avoid nephrotoxic agents when possible DVT PROPHYLAXIS -lovenox DISPOSITION Will discharge home today Follow up with Dr. Napier on 08/12 @ 11:05 am Current Inpatient Medications: Current Inpatient Medications Medications (Trade) Dose Ordered Sig/Bharati Route Start Time Stop Time Status Last Admin Dose Admin Acetaminophen (Tylenol Tab) 650 mg Q4H PRN PO 08/05/17 16:45 09/04/17 16:44 08/06/17 07:34 650 MG Ondansetron HCl (Zofran Inj) 4 mg Q6H PRN IV 08/05/17 16:45 09/04/17 16:44 Nitroglycerin (Nitrostat Tab) 0.4 mg UD PRN SL 08/05/17 16:45 09/04/17 16:44 Losartan Potassium (coZAAR TAB) 50 mg DAILY PO 08/06/17 09:00 09/05/17 08:59 08/06/17 07:33 50 MG Simvastatin (Zocor Tab) 20 mg QPM PO 08/05/17 21:00 09/04/17 20:59 08/05/17 20:52 20 MG Cholecalciferol (Vitamin D Tab) 2,000 inter.unit HS PO 08/05/17 21:00 09/04/17 20:59 08/05/17 20:53 2,000 INTER.UNIT Pantoprazole Sodium (Protonix Tab) 40 mg QAM PO 08/06/17 09:00 09/05/17 08:59 08/06/17 07:33 40 MG Enoxaparin Sodium (Lovenox Inj) 40 mg HS SC 08/05/17 21:00 09/04/17 20:59 08/05/17 20:53 40 MG Miscellaneous (Iv Fluids Completed) 1 ea PRN PRN N/A 08/05/17 21:45 08/05/18 21:44
--- NOTE | 2017-08-06 17:56 | Discharge Instructions ---
Discharge Instructions Date of Service Aug 06, 2017. Admission Reason for Admission: Syncope Discharge Discharge Diagnosis / Problem: Syncope Discharge Goals Goal(s): Decrease discomfort, Improve function, Improve disease control Activity Recommendations Activity Limitations: resume your previous activity . Instructions / Follow-Up Instructions / Follow-Up Follow up with your primary care provider Dr. Napier on 08/12 @ 11:05 am Fall precaution Current Hospital Diet Patient's current hospital diet: AHA Diet (Heart Healthy) Discharge Diet Recommended Diet: AHA Diet (Heart Healthy) Pending Studies Studies pending at discharge: no Medical Emergencies . Who to Call and When: Medical Emergencies: If at any time you feel your situation is an emergency, please call 911 immediately. . Non-Emergent Contact Non-Emergency issues call your: Primary Care Provider Call Non-Emergent contact if: you have a fever, you have any medication questions . . "Provider Documentation" section prepared by Ajay Fowler. . VTE Core Measure Inpt VTE Proph given/why not?: Enoxaparin (Lovenox)SQ
[2017-08-06] MEDS ORDERED: ORG200 PO (17:57)
--- NOTE | 2017-08-10 22:38 | Discharge Summary ---
Discharge Summary Date of Service Aug 10, 2017. Discharge Summary Admission Date: Aug 05, 2017 at 16:42 Discharge Date: Aug 06, 2017 Discharge Disposition: Home Principal Diagnosis: SYNCOPE Secondary Diagnoses/Problems: URI HTN DIARRHEA CKD STAGE 3 DYSLIPIDEMIA Procedures: [~ rep ct add3]] HEAD WITHOUT CONTRAST (CT) CLINICAL HISTORY: 72 years-old Male presenting with EVALUATE ALTERED MENTAL STATUS/WEAKNESS. TECHNIQUE: Multidetector CT imaging of the head was performed without the use of intravenous contrast. IV contrast: None. A dose lowering technique was used consistent with the principles of ALARA (as low as reasonably achievable). COMPARISON: None. CT DOSE (mGy.cm): The estimated cumulative dose is 638.56 mGycm. FINDINGS: [place] topogram: Unremarkable. Ventricles and sulci normal in size. Brain parenchyma normal in appearance with preserved patricio-white differentiation. No mass effect or midline shift. No hemorrhage or acute territorial infarct. No extra-axial fluid collection. Thickening of the right maxillary sinus. Calvarium intact. IMPRESSION: 1. No acute intracranial abnormality. Electronically signed by: Gopal Krishnan M.D. 08/05/2017 3:03 PM Dictated Date/Time: 08/05/2017 3:01 PM [~ rep ct add3]] CHEST ONE VIEW PORTABLE CLINICAL HISTORY: EVALUATE ALTERED MENTAL STATUS/WEAKNESS dyspnea COMPARISON STUDY: 08/29/2016 FINDINGS: The bones soft tissues and hemidiaphragms are normal. The cardiomediastinal silhouette is normal. The lungs are clear. The pulmonary vasculature is normal. IMPRESSION: Negative chest. The above report was generated using voice recognition software. It may contain grammatical, syntax or spelling errors. Electronically signed by: Charles Rubio M.D. 08/05/2017 3:13 PM Dictated Date/Time: 08/05/2017 3:12 PM Medication Reconciliation New Medications: Guaifenesin (Organ-I Nr) 200 Mg Tab 1 TAB PO Q8 PRN for Cough for 5 Days, #15 Continued Medications: Cholecalciferol (D 2000) 2,000 Unit Tab 2000 INTERUNIT PO HS Losartan Potassium (Cozaar) 100 Mg Tab 0.5 TAB PO DAILY for 30 Days, #15 TAB 5 Refills Omeprazole (Prilosec) 40 Mg Cap 40 MG PO QAM, CAP Simvastatin (Zocor) 20 Mg Tab 20 MG PO QPM, TAB Admission Information HPI (per Admitting provider): Pt is 72 y/o M with PMH HTN, dyslipidemia, GERD, CKD III who presented to ER with c/o syncope. Pt states around noon today he was sitting in chair when he started to feel lightheaded, generalized weakness, hot, sweaty, and felt like a "band squeezing around my head, but not a GARNER". These symptoms reported for couple of minutes. His said she stepped away and her son saw pt pass out and slump over the table while sitting in chair and are unsure if pt vomited as they heard "gurgling" sound. States lasted approx a minute then pt regained consciousness and sat up and it is reported he had another syncopal episode and slumped over in chair. When pt regained consciousness they put him supine on floor and report he was pale and sweaty and confused. Denies any noted convulsions or shaking. Pt reports doesn't remember passing out. Denies falls or hitting head or hx head injury. Denies loss control bowel/bladder, biting tongue. Denies hx syncope or seizures. He ate breakfast this morning. Denies coughing/vomiting episodes prior to syncope. Pt reports past 5 days with purulent rhinorrhea, nasal congestion, sore throat, and cough. reports appetite been decreased with his URI symptoms. Reports with URI symptoms also and was around granddaughters with strep throat. He took OTC Tylenol flu/cold medicine, didn't have any today. Denies any other OTC meds or supplements. Denies ETOH or drug use, SOB, CP, palpitations. Denies FH seizures/syncope or FH sudden at young age. Denies fever/chills, N/D/C, vision changes, neck pain, CP, SOB, orthopnea, palpitations, hemoptysis, otalgia, abdominal pain, paresthesias, extremity edema, rashes, urinary symptoms. Denies hx influenza vaccine this season. In ER afebrile, P:65, BP: 119/66 - 131/73. Glucose: 103, WBC: 14. Cr: 1.7 ( baseline 1.6). negative troponin. CXR: negative. CT head negative. EKG: NSR 63, no ST elevations. Pt denies any current symptoms and no recurrent syncope episodes since ER arrival. given 1L NSS Hx stress echo 09/2016 - no ischemia, EF: 55-60%, normal LV wall motion, mild aortic valve regurgitation Physical Exam (per Admitting): General Appearance: WD/WN, no apparent distress Head: normocephalic, atraumatic Eyes: normal inspection, PERRL, EOMI, sclerae normal ENT: hearing grossly normal, + pertinent finding Neck: supple, no adenopathy, no JVD, no carotid bruits, trachea midline, + pertinent finding Respiratory/Chest: chest non-tender, lungs clear, normal breath sounds, no respiratory distress, no accessory muscle use Cardiovascular: regular rate, rhythm, no edema, no murmur, normal peripheral pulses Abdomen/GI: normal bowel sounds, non tender, soft Back: normal inspection, no CVA tenderness Extremities/Musculoskelatal: normal inspection, no calf tenderness, normal capillary refill, normal range of motion, non-tender, pelvis stable Neurologic/Psych: senior client advisor II-XII nml as tested, alert, normal mood/affect, oriented x 3 Skin: normal color, warm/dry, no rash Hospital Course SYNCOPE Mostly vasovagal CT head showed no acute intracranial abnormality. No arrhythmia on telemonitor Troponin negative Clinically stable URI Flu test negative strep swab negative WBC trending down Symptoms improved HTN -continue losartan Diarrhea Improved On IVF DYSLIPIDEMIA Lipid panel 05/22/17: total: 188, LDL: 91, HDL: 34, Triglycerides: 317 -continue simvastatin GERD -continue PPI CKD III Cr: 1.7 (baseline 1.6) Creatine improved to 1.4 avoid nephrotoxic agents when possible DVT PROPHYLAXIS -lovenox DISPOSITION Will discharge home today Follow up with Dr. Napier on 08/12 @ 11:05 am Total time spent on discharge = 35 MINUTES This includes examination of the patient, discharge planning, medication reconciliation, and communication with other providers. Discharge Instructions Discharge Instructions Date of Service Aug 06, 2017. Admission Reason for Admission: Syncope Discharge Discharge Diagnosis / Problem: Syncope Discharge Goals Goal(s): Decrease discomfort, Improve function, Improve disease control Activity Recommendations Activity Limitations: resume your previous activity . Instructions / Follow-Up Instructions / Follow-Up Follow up with your primary care provider Dr. Napier on 08/12 @ 11:05 am Fall precaution Current Hospital Diet Patient's current hospital diet: AHA Diet (Heart Healthy) Discharge Diet Recommended Diet: AHA Diet (Heart Healthy) Pending Studies Studies pending at discharge: no Medical Emergencies . Who to Call and When: Medical Emergencies: If at any time you feel your situation is an emergency, please call 911 immediately. . Non-Emergent Contact Non-Emergency issues call your: Primary Care Provider Call Non-Emergent contact if: you have a fever, you have any medication questions . . "Provider Documentation" section prepared by Ajay Fowler. . VTE Core Measure Inpt VTE Proph given/why not?: Enoxaparin (Lovenox)SQ Additional Copies To Maninder Napier M.D.
== END 2017-08-06 18:08 | disposition home or self-care (01) ==
LOC: EDBD 13:14 → C.EDC 13:15 → C.2T 16:42 → ENRESERV 17:25
PROVIDERS: ADMIT Hospitalist; ATTEND Internal Medicine
DX: R55 Syncope and collapse (principal); N18.3 Chronic kidney disease, stage 3 (moderate); K21.9 Gastro-esophageal reflux disease without esophagitis; E78.5 Hyperlipidemia, unspecified; Z87.442 Personal history of urinary calculi; Z90.89 Acquired absence of other organs

== ENCOUNTER 2023-11-13 15:57 | Observation (INO) ==
--- NOTE | 2023-11-13 16:02 | ED Triage Note ---
Date of Service November 13, 2023 Provider in Triage Author: Elosie Murphy History of Present Illness This patient was briefly evaluated while in triage. An abbreviated physical exam was performed. This patient is a 78-year-old Male who presents to the ED for evaluation acute left hip/flank pain since 399 Ibuprofen, heat, fluids not helping n/v x 2 no urinary symptoms hx of stones, this feels similar Physical Exam GENERAL: NAD CARDIOVASCULAR: RRR RESPIRATORY: CTA ABDOMEN: BS x 4. Nontender to palpation. Initial orders for labs and / or imaging were placed and patient was placed in the waiting area until a bed is available. Please see further documentation for the full ED course.
[2023-11-13] MEDS: KETOROLAC TROMETHAMINE 15 MG/ML VIAL IV STA (16:20)
[2023-11-13] MEDS: ONDANSETRON INJ 2 MG/ML 2 ML VIAL IV STA ×2 (16:20→18:07)
[2023-11-13] MEDS: SODIUM CHLORIDE 0.9% 1,000 ML IV SCH (16:24)
[2023-11-13 16:53] LABS: Basophils # (auto) 0.07 K/uL (0.00-0.20); Basophils % (auto) 0.7 %; Eosinophils # (auto) 0.11 K/uL (0.00-0.50); Eosinophils % (auto) 1.1 %; Hematocrit (blood only) 43.9 % (42.0-52.0); Immature Granulocytes # (auto) 0.03 K/uL (0.01-0.20); Immature Granulocytes % (auto) 0.3 %; Lymphocytes # (auto) 1.64 K/uL (1.20-3.40); Lymphocytes % (auto) 16.4 %; Mean Corpuscular Hemoglobin 31.7 pg (25.0-34.0); Mean Corpuscular Hgb Conc 34.2 g/dL (32.0-36.0); Mean Corpuscular Volume 92.8 fL (80.0-100.0); Mean Platelet Volume 10.1 fL (9.4-12.4); Monocytes # (auto) 0.77 K/uL (0.11-0.59); Monocytes % (auto) 7.7 %; Neutrophils # (auto) 7.41 K/uL (1.40-6.50); Neutrophils % (auto) 73.8 %; Platelet Count 171 K/uL (130-400); RDW Coefficient of Variation 12.6 % (11.5-14.5); RDW Standard Deviation 43.1 fL (36.4-46.3); Red Blood Count 4.73 M/uL (4.70-6.10); White Blood Count 10.03 K/ul (4.8-10.8)
--- NOTE | 2023-11-13 16:54 | CT Scan Report ---
ABDOMEN AND PELVIS CT WITHOUT CONTRAST CT DOSE: 1167.71 mGy.cm HISTORY: LEFT FLANK PAIN, HX OF STONES TECHNIQUE: Multiaxial CT images of the abdomen and pelvis were performed without contrast. A dose lo wering technique was utilized adhering to the principles of ALARA. COMPARISON STUDY: Abdomen and pelvis CT 11/03/2013. FINDINGS: The lung bases are clear. No pneumoperitoneum. No pneumatosis. No acute fractures identifie d. Severe coronary artery calcifications are noted. Small fat-containing right inguinal hernia. The u nenhanced liver, gallbladder, pancreas, spleen, and adrenal glands are unremarkable. There are 2 nono bstructing stones within the right kidney measuring up to 4 mm. No right-sided hydronephrosis. There is a 3 mm obstructing stone at the left ureteral vesicle junction resulting in mild left hydrouretero nephrosis. No additional left renal calculi. A 9 mm hypodense lesion within the lower pole of the lef t kidney is incompletely characters on this noncontrast study but statistically represents a cyst. No retroperitoneal lymphadenopathy. Mild calcified plaque within the normal caliber abdominal aorta. No pelvic lymphadenopathy or pelvic free fluid. No bladder wall thickening. The prostate gland is mildl y enlarged. Suboptimal evaluation for bowel pathology due to the lack of intravenous and oral contras t. However, there is no definite bowel wall thickening or obstruction. IMPRESSION: 1. A 3 mm obstructing stone within the left ureterovesical junction resulting in mild left hydronephr osis. 2. Right-sided nephrolithiasis. No right-sided hydronephrosis. 3. No bowel wall thickening or obstruction. 4. Mild prostatomegaly. ACT 112: Negative or not required by law. Electronically signed by: Damir Nieves M.D. 11/13/2023 4:52 PM
[2023-11-13 17:13] LABS: Albumin Globulin Ratio 1.6 (0.9-2); Albumin Level 4.5 gm/dl (3.4-5.0); BUN Creatinine Ratio 12.9 (10-20); Bilirubin,Total 0.6 mg/dl (0.2-1.0); Calcium 9.4 mg/dl (8.6-10.3); Creatinine Clr Calc Pharmacy 27.6 ml/min; Est GFR (African American) 31.6 ml/min; Est GFR (Non-African American) 27.3 ml/min; Globulin 2.9 gm/dl (2.5-4.0); Total Protein 7.4 gm/dl (6.0-8.3)
[2023-11-13] MEDS: MoRPHine SULFATE 4 MG/ML 1 ML CARP\\VIAL IV STA (18:07)
[2023-11-13 18:24] LABS: Appearance Urine Clear (Clear); Bilirubin Urine Negative (Negative); Blood Urine Negative (Negative); Color Urine Yellow; Glucose Urine UA Negative (Negative); Ketones Urine Negative (Negative); Leukocyte Esterase Urine Negative (Negative); Nitrite Urine Negative (Negative); Protein Urine Negative (Negative); Specific Gravity Urine 1.004 (1.000-1.030); Urobilinogen Urine Negative (Negative); pH Urine 5.5 (4.5-7.5)
--- NOTE | 2023-11-13 19:59 | History & Physical Report ---
Date of Service November 13, 2023 Assessment & Plan (1) Left ureteral calculus: (2) Hydronephrosis due to obstruction of ureter: (3) Acute worsening of stage 3 chronic kidney disease: (4) HTN (hypertension): (5) Hyperlipidemia: Plan This is a 78-year-old male who has a significant past medical history of HTN, HLD, prediabetes, GERD, history of nephrolithiasis and CKD stage III who presents to ED secondary to left flank pain. --CT a/p: . A 3 mm obstructing stone within the left ureterovesical junction resulting in mild left hydronephrosis. Left ureteral calculus, 3 mm at UVJ Mild hydronephrosis Admit to medical Consult urology -discussed with Dr. Mantilla recommends n.p.o. after midnight and will alert if worsening of symptoms LR at 150 cc/h Flomax 0.4 mg daily Strain all urine As needed pain medication Repeat renal function in a.m. Acute on chronic CKD stage III Baseline creatinine 1.4 He did take [id number] Motrin at home as well as received Toradol in ED Continue with gentle IV fluid Repeat renal function in a.m. Hypertension Chronic, stable Elevated in ED secondary to pain Continue amlodipine Hold losartan in setting of TASH Hyperlipidemia Chronic, stable Continue statin GERD Continue PPI Prediabetes A1c 5.8 in outpatient setting Lifestyle modification DVT prophylaxis: Encourage ambulation, if remains hospitalized greater than 24 hours consider chemical prophylaxis Full code PCP: Dr. Maurice Dispo: admit to medical Pt was seen and examined in collaboration with Dr. Weems, please see addendum A total of 76 minutes was spent coordinating, documenting, and providing care for this patient excluding time spent in the performance of separately billed services. This included personally viewing all current laboratories and imaging studies, medication reconciliation, outpatient chart review, and discussion with specialists. History of Present Illness Chief Complaint: L Flank pain x 1 day. Primary Care Provider: Margaret Maurice MD This is a 78-year-old male who has a significant past medical history of HTN, HLD, prediabetes, GERD, history of nephrolithiasis and CKD stage III who p resents to ED secondary to left flank pain. His is at bedside who also helps elicit history. He states he woke up this morning with a pain in his left hip. 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 When he got to working with his son his pain traveled to his left flank became very severe, sharp and stabbing and was associated with 3 episodes of bilious vomit. He took ibuprofen 600 mg on 2 separate occasions today with minimal relief of his symptoms. He has prior history of kidney stones and this felt similar. He then reported home after not feeling well and states that he was pacing about as he could not get comfortable to because of pain. He opted to present to ED. He was hypertensive but was otherwise hemodynamically stable on admission. His labs were not indicative of sepsis and his urinalysis was negative. CT abdomen pelvis revealed a 3 mm left UVJ obstructing stone with mild left hydronephrosis. He also had a new TASH with an elevated creatinine at 2.24 from his baseline of 1.4. He did receive IV Toradol, IV morphine and IV fluids in the ED. 4 mg of IV morphine made him, "loopy." Allergies Allergy/AdvReac Type Severity Reaction Status Date / Time propofol Allergy Intermediate SEIZURE Verified 11/13/23 18:19 Home Medications Medication Instructions Recorded Confirmed Type amlodipine 5 mg tablet 5 mg PO DAILY 11/13/23 11/13/23 History aspirin 81 mg tablet,delayed 81 mg PO HS 11/13/23 11/13/23 History release cholecalciferol (vitamin D3) 50 50 mcg PO DAILY 11/13/23 11/13/23 History mcg (2,000 unit) tablet (Vitamin D3) famotidine 20 mg tablet 20 mg PO BID 11/13/23 11/13/23 History losartan 50 mg tablet 50 mg PO HS 11/13/23 11/13/23 History multivitamin 1 tab PO DAILY 11/13/23 11/13/23 History simvastatin 20 mg tablet 20 mg PO HS 11/13/23 11/13/23 History Past Med/Surg History Medical History CKD (chronic kidney disease), stage III Kidney stone Pre-diabetes Hyperlipidemia HTN (hypertension) Esophageal reflux Surgical History Hx of colonoscopy Hx of mastectomy "for gynecomastia - 1966" Hx of appendectomy Family History Other Cancer Coronary heart disease Diabetes Social History Smoking Status: Never smoker Hx Alcohol Use: No Hx Substance Use: No Preferred Language: Kiswahili Communication Ability: Effective Silicator Required: No Beliefs That Will Affect Care: None marital status: Current Living Situation: Spouse Other Information That Helps Us Care for You: No Feels Safe at Home: Yes Safety Concerns: Feels Safe At This Time Assistive Devices: None Review of Systems Review of Systems: All systems reviewed & are unremarkable except as noted in HPI & below Physical Exam Physical Exam: Constitutional: WD/WN, vitals as above, NAD, sitting up in bed, pleasant, conversing easily Head: Normocephalic, Atraumatic Eyes: PERRL, conjunctivae normal, anicteric sclerae ENMT: external ear and nose normal, oropharynx normal Neck: trachea midline, no thyromegaly normal visual inspection Respiratory: normal respiratory effort, lungs clear to auscultation, no wheeze, rales, rhonchi. Normal insp/exp effort, no accessory muscle use Cardiovascular: RRR, no murmur, no edema Vessels: no JVD or carotid bruit Chest: normal inspection of chest Abdomen: normal bowel sounds, soft, nontender, no hepatosplenomegaly, no CVA tenderness Musculoskeletal: no cyanosis or clubbing, extremities motor strength 5/5 Skin: no rashes, warm and dry normal turgor Neurologic: PERRL, EOMI, accommodation nl, no face palsy, no dysarthria CN's II-XI intact bilaterally and moves all extremities Psychiatric: A+Ox3, euthymic affect Lymphatic: no cervical or axillary lymphadenopathy : deferred Results & Data Results & Data Vital Signs (Past 12 Hours) Vital Signs Temp Pulse Pulse Resp BP BP Pulse Ox 11/13/23 19:00 50 L 16 156/85 H 96 11/13/23 17:16 55 L 18 185/83 H 98 11/13/23 16:01 37.0 C 79 16 187/81 H 98 O2 Del Method 11/13/23 19:00 Room Air 11/13/23 17:16 Room Air 11/13/23 16:01 Room Air Diagnostic Findings Abdomen/Pelvis CT 11/13/23 16:[address] WITHOUT CONTRAST CT DOSE: 1167.71 mGy.cm HISTORY: LEFT FLANK PAIN, HX OF STONES TECHNIQUE: Multiaxial CT images of the abdomen and pelvis were performed without contrast. A dose lowering technique was utilized adhering to the principles of ALARA. COMPARISON STUDY: Abdomen and pelvis CT 11/03/2013. FINDINGS: The lung bases are clear. No pneumoperitoneum. No pneumatosis. No acute fractures identified. Severe coronary artery calcifications are noted. Small fat-containing right inguinal hernia. The unenhanced liver, gallbladder, pancreas, spleen, and adrenal glands are unremarkable. There are 2 nonobstructing stones within the right kidney measuring up to 4 mm. No right- sided hydronephrosis. There is a 3 mm obstructing stone at the left ureteral vesicle junction resulting in mild left hydroureteronephrosis. No additional left renal calculi. A 9 mm hypodense lesion within the lower pole of the left kidney is incompletely characters on this noncontrast study but statistically represents a cyst. No retroperitoneal lymphadenopathy. Mild calcified plaque within the normal caliber abdominal aorta. No pelvic lymphadenopathy or pelvic free fluid. No bladder wall thickening. The prostate gland is mildly enlarged. Suboptimal evaluation for bowel pathology due to the lack of intravenous and oral contrast. However, there is no definite bowel wall thickening or obstruction. IMPRESSION: 1. A 3 mm obstructing stone within the left ureterovesical junction resulting in mild left hydronephrosis. 2. Right-sided nephrolithiasis. No right-sided hydronephrosis. 3. No bowel wall thickening or obstruction. 4. Mild prostatomegaly. ACT 112: Negative or not required by law. Electronically signed by: Damir Nieves M.D. 11/13/2023 4:52 PM Medications Administered Medication List Discontinued Medications Sodium Chloride (Nss) 1,000 mls @ 999 mls/hr IV .Q1H1M RICHIE Stop: 11/13/23 17:03 Last Infusion: 11/13/23 18:15 Dose: Infused Documented By: Admin: 11/13/23 16:24 Dose: 999 mls/hr Documented By: MIKE Ketorolac Tromethamine (Ketorolac Tromethamine 15 Mg/Ml Vial) 15 mg IV NOW STA Stop: 11/13/23 16:03 Last Admin: 11/13/23 16:20 Dose: 15 mg Documented By: LMM Morphine Sulfate (Morphine Sulfate 4 Mg/Ml 1 Ml Carp\\Vial) 4 mg IV NOW STA Stop: 11/13/23 17:51 Last Admin: 11/13/23 18:07 Dose: 4 mg Documented By: GAGANDEEPK Ondansetron HCl (Ondansetron Inj 2 Mg/Ml 2 Ml Vial) 4 mg IV NOW STA Stop: 11/13/23 16:03 Last Admin: 11/13/23 16:20 Dose: 4 mg Documented By: LMM Ondansetron HCl (Ondansetron Inj 2 Mg/Ml 2 Ml Vial) 4 mg IV NOW STA Stop: 11/13/23 17:51 Last Admin: 11/13/23 18:07 Dose: 4 mg Documented By: NILSON COVID-19 Results Results COVID-19 Adm Lab Results: RBC 4.16 M/uL (4.70-6.10) L 11/14/23 WBC 6.30 K/ul (4.8-10.8) 11/14/23 Hgb 13.1 g/dl (14.0-18.0) L 11/14/23 Hct 38.8 % (42.0-52.0) L 11/14/23 Plt Count 151 K/uL (130-400) 11/14/23 Neutrophils (%) (Auto) 57.0 % 11/14/23 Lymphocytes (%) (Auto) 28.3 % 11/14/23 Monocytes # (Auto) 0.62 K/uL (0.11-0.59) H 11/14/23 Immature Granulocyte % (Auto) 0.3 % 11/14/23 Neutrophils # (Auto) 3.59 K/uL (1.40-6.50) 11/14/23 Lymphocytes # (Auto) 1.78 K/uL (1.20-3.40) 11/14/23 Monocytes # (Auto) 0.62 K/uL (0.11-0.59) H 11/14/23 Basophils # (Auto) 0.05 K/uL (0.00-0.20) 11/14/23 Immature Granulocyte # (Auto) 0.02 K/uL (0.01-0.20) 4 Na 142 mmol/L (136-145) 11/14/23 K 4.1 mmol/L (3.5-5.1) 11/14/23 Cl 110 mmol/L (98-107) H 11/14/23 CO2 28 mmol/L (21-32) 11/14/23 Anion Gap 4 (3-11) 11/14/23 BUN 20 mg/dl (6-23) 11/14/23 Creatinine 1.58 mg/dl (0.6-1.4) H 11/14/23 BUN/Creatinine Ratio 12.7 (10-20) 11/14/23 Glucose Level 100 mg/dl (70-99(Fasting)) H 11/14/23 Ca 8.9 mg/dl (8.6-10.3) 11/14/23 Total Bilirubin 0.6 mg/dl (0.2-1.0) 11/14/23 AST/SGOT 20 U/L (13-39) 11/14/23 ALT/SGPT 18 U/L (7-52) 11/14/23 Alkaline Phosphatase 56 U/L (34-104) 11/14/23 Total Protein 6.0 gm/dl (6.0-8.3) 11/14/23 Albumin 3.7 gm/dl (3.4-5.0) 11/14/23 Globulin 2.3 gm/dl (2.5-4.0) L 11/14/23 Albumin/Globulin Ratio 1.6 (0.9-2) 11/14/23 Code Status & VTE Plan Code Status Full code VTE Prophylaxis Plan VTE Prophylaxis will be ordered: No Reason for no VTE drug order: Treatment not indicated Supervising Physician Co-Signing Physician Notes Pt seen and examined by me, care coordinated w/ Fátima Vegas, pls refer to her note above for further detail. Pt is a 78 yo M who w/ hx of HTN, HLD, prediabetes, GERD, history of nephrolithiasis and CKD stage III who presents w/ left flank pain. He also reports episodes of vomiting likely from pain. He took ibuprofen with minimal relief of his symptoms. In the ED, CT abdomen pelvis showed a 3 mm left UVJ obstructing stone with mild left hydronephrosis. He also had a new TASH with an elevated creatinine at 2.24 from his baseline of 1.4. He did receive IV Toradol, IV morphine and IV fluids in the ED. Currently he is laying in bed in NAD, says morphine is controlling the pain and he feels fairly comfortable at this time. He is awake, alert, oriented, answers appropriately. No fever, chills, no chest pain, or shortness of breath. Lungs are clear to auscultation, heart sounds - mildly tachycardic, abdomen soft, nontender, nondistended, minimal left CVA tenderness (pt reports much improved after getting pain meds), no LE edema, pt moves extremities. Will avoid NSAIDs given TASH, cont. instead w/ morphine, tylenol, cont. with fluids, flomax, strain urine, urology consulted. MD Faustina
[2023-11-13] MEDS: TAMSULOSIN HCL 0.4 MG CAP PO ONE (20:50)
[2023-11-13] MEDS ORDERED: hydrALAZINE 10 MG TAB PO PRN (21:50)
[2023-11-13] MEDS ORDERED: MoRPHine SULFATE 2 MG/ML CARP IV PRN (21:50)
[2023-11-13] MEDS ORDERED: ACETAMINOPHEN 325 MG TAB PO PRN (21:50)
[2023-11-13] MEDS ORDERED: oxyCODONE HCL IR 5 MG TAB (IMMEDIATE RELEASE) PO PRN (21:50)
[2023-11-13] MEDS ORDERED: POLYETHYLENE (MIRALAX) 17 GM PACK PO PRN (21:50)
[2023-11-13] MEDS ORDERED: ONDANSETRON INJ 2 MG/ML 2 ML VIAL IV PRN (21:50)
[2023-11-13] MEDS: SIMVASTATIN 20 MG TAB PO SCH (22:31)
[2023-11-13] MEDS: FAMOTIDINE 20 MG TAB PO SCH (22:31)
[2023-11-13] MEDS: ASPIRIN 81 MG ECTAB PO SCH (22:32)
[2023-11-13] MEDS: LACTATED RINGER'S 1,000 ML IV SCH (22:32)
--- NOTE | 2023-11-14 00:04 | Emergency Department Note ---
History of Present Illness General Chief Complaint: Kidney Stone Stated Complaint: POSSIBLE KIDNEY STONE, SEVERE LT BACK PAIN Time Seen by Provider: 11/13/23 17:31 History of Present Illness Provider Complaint: flank pain Onset (ago): 1 day(s) Pain Consistency: intermittent Location: L flank Radiation: LLQ Maximum Pain Intensity: 0 Quality: + stabbing and + sharp Relieved By: + nothing Exacerbated By: + nothing Context: + history of similar episodes (Kidney stones); no foreign travel, no possible food poisoning, no sick contacts, no recent antibiotic use, no recent surgery/procedure or no recent injury Associated Symptoms: + nausea and + vomiting; no diarrhea, no fever, no chills, no constipation, no dysuria, no hematemesis, no hematochezia, no melena, no hematuria, no syncope, no headache, no neck pain, no chest pain and no breathing difficulty Home Medications Medication Instructions Recorded Confirmed Type amlodipine 5 mg tablet 5 mg PO DAILY 11/13/23 11/13/23 History aspirin 81 mg tablet,delayed 81 mg PO HS 11/13/23 11/13/23 History release cholecalciferol (vitamin D3) 50 50 mcg PO DAILY 11/13/23 11/13/23 History mcg (2,000 unit) tablet (Vitamin D3) famotidine 20 mg tablet 20 mg PO BID 11/13/23 11/13/23 History losartan 50 mg tablet 50 mg PO HS 11/13/23 11/13/23 History multivitamin 1 tab PO DAILY 11/13/23 11/13/23 History simvastatin 20 mg tablet 20 mg PO HS 11/13/23 11/13/23 History Allergies Allergy/AdvReac Type Severity Reaction Status Date / Time propofol Allergy Intermediate SEIZURE Verified 11/13/23 18:19 Past Med/Surg History Medical History CKD (chronic kidney disease), stage III Kidney stone Pre-diabetes Hyperlipidemia HTN (hypertension) Esophageal reflux Surgical History Hx of colonoscopy Hx of mastectomy "for gynecomastia - 1966" Hx of appendectomy Family History Other Cancer Coronary heart disease Diabetes Social History Smoking Status: Never smoker Hx Alcohol Use: No Hx Substance Use: No Preferred Language: Macedonian Communication Ability: Effective 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 Beliefs That Will Affect Care: None marital status: Current Living Situation: Spouse Other Information That Helps Us Care for You: No Feels Safe at Home: Yes Safety Concerns: Feels Safe At This Time Physical Exam 2 Vital Signs: Vital Signs - 24 hr 11/13/23 16:01 11/13/23 17:16 Temperature 37.0 C Temperature Source Temporal Artery Sc an Pulse Rate 79 Pulse Rate [Right Finger] 55 L Respiratory Rate 16 18 Respiratory Effort / Characteristics Non-Labored Sponta neous Respiratory Depth Normal Blood Pressure 187/81 H Blood Pressure [Le ft Arm] 185/83 H Blood Pressure Elida n 116 Blood Pressure Elida n [Left Arm] 117 Pulse Oximetry 98 98 Oxygen Delivery Me thod Room Air Room Air Sepsis Recent Feve r Within 48 Hours No Sepsis New/Unexpla ined Change in Men mendy Status No Sepsis Action Take n by Nursing No Action Required Physical Exam: Physical Exam GENERAL: She is oriented to person, place, and time. She appears well-developed and well-nourished. She does not appear distressed. HENT: Exam performed. -Head: Normocephalic and atraumatic. -Right Ear: External ear normal. No mastoid erythema -Left Ear: External ear normal. No mastoid erythema -Mouth/Throat: The oropharynx is clear and moist. No trismus in the jaw. No dental abscesses or uvula swelling. No oropharyngeal exudate or tonsillar abscesses. EYES: Conjunctivae and EOM are normal.Right eye exhibits no discharge. Left eye exhibits no discharge. No scleral icterus. NECK: Normal range of motion. Neck supple. No JVD present. No tracheal deviation and normal range of motion present. CV: Normal rate, regular rhythm, normal heart sounds and intact distal pulses. There is no peripheral edema. Palpable radial pulses bue. PULM/CHEST: Effort normal and breath sounds normal. No respiratory distress. No stridor. She has no wheezes. She has no rales. -Chest Wall: She exhibits no tenderness. ABD: The abdomen is soft. Bowel sounds are normal. She has no distension. No mass is present. There is no tenderness. There is no rebound, no guarding, no Ayoub's sign and no tenderness at McBurney's point. Rovsig negative. Left- sided CVA tenderness. MUSC/SKEL: Normal range of motion. There is no peripheral edema, tenderness or deformity. NEURO: Motor and sensation grossly intact. SKIN: Skin is warm and dry. She is not diaphoretic. PSYCH: She has a normal mood and affect. Behavior is normal. Judgment and thought content normal. Course Course 1731: The patient was evaluated in room C10. A complete history and physical exam was performed Administered Medications Aspirin (Aspirin 81 Mg Ectab) 81 mg PO HS RICHIE Stop: 12/13/23 21:49 Last Admin: 11/13/23 22:32 Dose: 81 mg Documented By: SHAI Famotidine (Famotidine 20 Mg Tab) 20 mg PO BID RICHIE Stop: 12/13/23 21:49 Last Admin: 11/13/23 22:31 Dose: 20 mg Documented By: SHAI Lactated Ringer's (Lr) 1,000 mls @ 150 mls/hr IV .Q6H40M RICHIE Stop: 12/13/23 21:49 Last Admin: 11/13/23 22:32 Dose: 150 mls/hr Documented By: SHAI Simvastatin (Simvastatin 20 Mg Tab) 20 mg PO HS RICHIE Stop: 12/13/23 21:49 Last Admin: 11/13/23 22:31 Dose: 20 mg Documented By: SHAI Discontinued Medications Sodium Chloride (Nss) 1,000 mls @ 999 mls/hr IV .Q1H1M RICHIE Stop: 11/13/23 17:03 Last Infusion: 11/13/23 18:15 Dose: Infused Documented By: Admin: 11/13/23 16:24 Dose: 999 mls/hr Documented By: MIKE Ketorolac Tromethamine (Ketorolac Tromethamine 15 Mg/Ml Vial) 15 mg IV NOW STA Stop: 11/13/23 16:03 Last Admin: 11/13/23 16:20 Dose: 15 mg Documented By: LMYuri Morphine Sulfate (Morphine Sulfate 4 Mg/Ml 1 Ml Carp\\Vial) 4 mg IV NOW STA Stop: 11/13/23 17:51 Last Admin: 11/13/23 18:07 Dose: 4 mg Documented By: NILSON Ondansetron HCl (Ondansetron Inj 2 Mg/Ml 2 Ml Vial) 4 mg IV NOW STA Stop: 11/13/23 16:03 Last Admin: 11/13/23 16:20 Dose: 4 mg Documented By: MIKE Ondansetron HCl (Ondansetron Inj 2 Mg/Ml 2 Ml Vial) 4 mg IV NOW STA Stop: 11/13/23 17:51 Last Admin: 11/13/23 18:07 Dose: 4 mg Documented By: NILSON Tamsulosin HCl (Tamsulosin Hcl 0.4 Mg Cap) 0.4 mg PO NOW ONE Stop: 11/13/23 19:50 Last Admin: 11/13/23 20:50 Dose: 0.4 mg Documented By: NILSON Medical Decision Making Medical Records Attestation: I reviewed the patient's medical records. External medical records reviewed. Patient was able to access his [place] chart and the patient has had a stable creatinine at 1.4 from 2020- 2023. Laboratory Data Attestation: I reviewed the patient's lab results. 11/13/23 16:25 11/13/23 16:25 Lab Results 11/13/23 11/13/23 Range/Units 16:25 18:00 WBC 10.03 (4.8-10.8) K/ul RBC 4.73 (4.70-6.10) M/uL Hgb 15.0 (14.0-18.0) g/dl Hct 43.9 (42.0-52.0) % MCV 92.8 (80.0-100.0) fL MCH 31.7 (25.0-34.0) pg MCHC 34.2 (32.0-36.0) g/dL RDW Std Deviation 43.1 (36.4-46.3) fL RDW Coeff of Flavia 12.6 (11.5-14.5) % Plt Count 171 (130-400) K/uL MPV 10.1 (9.4-12.4) fL Immature Gran % (Auto) 0.3 % Neut % (Auto) 73.8 % Lymph % (Auto) 16.4 % [place] % (Auto) 7.7 % Eos % (Auto) 1.1 % Baso % (Auto) 0.7 % Neut # (Auto) 7.41 H (1.40-6.50) K/uL Lymph # (Auto) 1.64 (1.20-3.40) K/uL [place] # (Auto) 0.77 H (0.11-0.59) K/uL Eos # (Auto) 0.11 (0.00-0.50) K/uL Baso # (Auto) 0.07 (0.00-0.20) K/uL Immature Gran # (Auto) 0.03 (0.01-0.20) K/uL Sodium 138 (136-145) mmol/L Potassium 4.0 (3.5-5.1) mmol/L Chloride 105 (98-107) mmol/L Carbon Dioxide 26 (21-32) mmol/L Anion Gap 7 (3-11) BUN 29 H (6-23) mg/dl Creatinine 2.24 H (0.6-1.4) mg/dl Est Cr Clr Drug Dosing 27.6 ml/min Est GFR ( Amer) 31.6 ml/min Est GFR (Non-Af Amer) 27.3 ml/min BUN/Creatinine Ratio 12.9 (10-20) Glucose 128 H (70-99(Fasting)) mg/dl Calcium 9.4 (8.6-10.3) mg/dl Total Bilirubin 0.6 (0.2-1.0) mg/dl AST 29 (13-39) U/L ALT 24 (7-52) U/L Alkaline Phosphatase 71 (34-104) U/L Total Protein 7.4 (6.0-8.3) gm/dl Albumin 4.5 (3.4-5.0) gm/dl Globulin 2.9 (2.5-4.0) gm/dl Albumin/Globulin Ratio 1.6 (0.9-2) Lipase 35 (11-82) U/L Urine Color Yellow Urine Appearance Clear (Clear) Urine pH 5.5 (4.5-7.5) Ur Specific [place] 1.004 (1.000-1.030) Urine Protein Negative (Negative) Urine Glucose (UA) Negative (Negative) Urine Ketones Negative (Negative) Urine Blood Negative (Negative) Urine Nitrite Negative (Negative) Urine Bilirubin Negative (Negative) Urine Urobilinogen Negative (Negative) Ur Leukocyte Esterase Negative (Negative) Imaging Data Radiologist's Impression: Abdomen/Pelvis CT 11/13/23 16:[address] WITHOUT CONTRAST CT DOSE: 1167.71 mGy.cm HISTORY: LEFT FLANK PAIN, HX OF STONES TECHNIQUE: Multiaxial CT images of the abdomen and pelvis were performed without contrast. A dose lowering technique was utilized adhering to the principles of ALARA. COMPARISON STUDY: Abdomen and pelvis CT 11/03/2013. FINDINGS: The lung bases are clear. No pneumoperitoneum. No pneumatosis. No acute fractures identified. Severe coronary artery calcifications are noted. Small fat-containing right inguinal hernia. The unenhanced liver, gallbladder, pancreas, spleen, and adrenal glands are unremarkable. There are 2 nonobstructing stones within the right kidney measuring up to 4 mm. No right- sided hydronephrosis. There is a 3 mm obstructing stone at the left ureteral vesicle junction resulting in mild left hydroureteronephrosis. No additional left renal calculi. A 9 mm hypodense lesion within the lower pole of the left kidney is incompletely characters on this noncontrast study but statistically represents a cyst. No retroperitoneal lymphadenopathy. Mild calcified plaque within the normal caliber abdominal aorta. No pelvic lymphadenopathy or pelvic free fluid. No bladder wall thickening. The prostate gland is mildly enlarged. Suboptimal evaluation for bowel pathology due to the lack of intravenous and oral contrast. However, there is no definite bowel wall thickening or obstruction. IMPRESSION: 1. A 3 mm obstructing stone within the left ureterovesical junction resulting in mild left hydronephrosis. 2. Right-sided nephrolithiasis. No right-sided hydronephrosis. 3. No bowel wall thickening or obstruction. 4. Mild prostatomegaly. ACT 112: Negative or not required by law. Electronically signed by: Damir Nieves M.D. 11/13/2023 4:52 PM [facility] Narrative Cardiac monitoring: An order was placed for continuous cardiac monitoring. The monitor shows a rate of 60 with sinus rhythm interpreted by [facility] External medical records reviewed. Patient was able to access his [place] chart and the patient has had a stable creatinine at 1.4 from 2020- 2023. Imaging shows a 3 mm left-sided calculus in the ureter with hydronephrosis. Patient's creatinine is up to 2.24 today. Given the patient's TASH and kidney stone patient will be admitted to the [facility] team with urology to evaluate. Impression & Plan Hydronephrosis due to obstruction of ureter, Acute kidney injury superimposed on CKD Discharge Plan Visit Data Chief Complaint: Kidney Stone Stated Complaint: POSSIBLE KIDNEY STONE, SEVERE LT BACK PAIN ED Provider: David Oropeza Discharge Problem: Hydronephrosis due to obstruction of ureter, Acute kidney injury superimposed on CKD Patient Disposition: Admitted As Inpatient Discharge Instructions Interventions: ED Discharge Assessment Last Done: 11/13/23 21:30
[2023-11-14 07:59] LABS: Basophils # (auto) 0.05 K/uL (0.00-0.20); Basophils % (auto) 0.8 %; Eosinophils # (auto) 0.24 K/uL (0.00-0.50); Eosinophils % (auto) 3.8 %; Hematocrit (blood only) 38.8 % (42.0-52.0); Hemoglobin 13.1 g/dl (14.0-18.0); Immature Granulocytes # (auto) 0.02 K/uL (0.01-0.20); Immature Granulocytes % (auto) 0.3 %; Lymphocytes # (auto) 1.78 K/uL (1.20-3.40); Lymphocytes % (auto) 28.3 %; Mean Corpuscular Hemoglobin 31.5 pg (25.0-34.0); Mean Corpuscular Hgb Conc 33.8 g/dL (32.0-36.0); Mean Corpuscular Volume 93.3 fL (80.0-100.0); Mean Platelet Volume 10.4 fL (9.4-12.4); Monocytes # (auto) 0.62 K/uL (0.11-0.59); Monocytes % (auto) 9.8 %; Neutrophils # (auto) 3.59 K/uL (1.40-6.50); Platelet Count 151 K/uL (130-400); RDW Coefficient of Variation 12.7 % (11.5-14.5); RDW Standard Deviation 44.1 fL (36.4-46.3); Red Blood Count 4.16 M/uL (4.70-6.10)
[2023-11-14] MEDS: amLODIPine BESYLATE 5 MG TAB PO SCH (08:09)
[2023-11-14] MEDS: CHOLECALCIFEROL 25 MCG (1000 UNITS) TAB PO SCH (08:09)
[2023-11-14 08:21] LABS: Albumin Globulin Ratio 1.6 (0.9-2); Albumin Level 3.7 gm/dl (3.4-5.0); BUN Creatinine Ratio 12.7 (10-20); Bilirubin,Total 0.6 mg/dl (0.2-1.0); Calcium 8.9 mg/dl (8.6-10.3); Est GFR (African American) 48.2 ml/min; Est GFR (Non-African American) 41.6 ml/min; Globulin 2.3 gm/dl (2.5-4.0); Potassium 4.1 mmol/L (3.5-5.1)
--- NOTE | 2023-11-14 08:52 | Urology Consultation ---
<Statement entered by Montana Mantilla MD - 11/14/23 11:32> I have discussed Mr. Mcclelland's case with BERE Ontiveros and agree with the above documentation. Stone seems to pass spontaneously at this point. We will hold off urologic intervention. We will establish care as an outpatient to review stone prevention and coordinate follow-up. -Montana Mantilla MD. Date of Consultation November 14, 2023 Assessment & Plan (1) Left ureteral calculus: (2) Hydronephrosis due to obstruction of ureter: (3) Acute kidney injury superimposed on CKD: 78 yo/M admitted for acute left flank pain and TASH secondary to an obstructing 3 [address] left [address]J stone. CT A/P showed an obstructing 3 mm left UVJ stone with mild left hydronephrosis; additional nonobstructing right renal calculi Patient passed stone spontaneously overnight Subjectively feeling much better, pain has resolved Stone sent for chemical analysispending Creatinine trending down, now 1.58; no leukocytosis UA on arrival was not suspicious for infection Plan: No surgical intervention needed at this time Patient can be discharged from standpoint when medically stable Will arrange outpatient follow-up with urology in approximately 1 month with EMERITA will sign off, contact our service with any additional questions or concerns History of Present Illness Reason for Consultation: Obstructing 3mm stone, TASH Attending Physician: Ricky Sykes MD History of Present Illness This is a 78-year-old male with history of nephrolithiasis who presented to the emergency department on 11/13/2023 with acute onset of left flank pain with associated nausea and vomiting. On arrival, he was afebrile and hemodynamically stable. Lab work reviewed and notable for elevated creatinine 2.24; no leukocytosis, hemoglobin 15.0. Urinalysis was negative. CT abdomen and pelvis without contrast independently reviewed and notable for an obstructing 3 mm stone within the left UVJ resulting in mild left hydronephrosis; additional nonobstructing right renal calculi noted. ED course: IV fluids, ketorolac, tamsulosin, morphine and ondansetron. He was admitted to the hospital medicine service for left ureteral calculus and TASH. Patient seen and examined at bedside this morning. He reports passing stone overnight. He is feeling much better today. Denies flank pain. Denies nausea, vomiting, fever or chills. Reports history of kidney stones. He has spontaneously passed 2 stones previously, approximately 5 and 10 years ago. Reports his prior stones are calcium. No prior surgical intervention for stones. Allergies Allergy/AdvReac Type Severity Reaction Status Date / Time propofol Allergy Intermediate SEIZURE Verified 11/13/23 18:19 Home Medications Medication Instructions Recorded Confirmed Type amlodipine 5 mg tablet 5 mg PO DAILY 11/13/23 11/13/23 History aspirin 81 mg tablet,delayed 81 mg PO HS 11/13/23 11/13/23 History release cholecalciferol (vitamin D3) 50 50 mcg PO DAILY 11/13/23 11/13/23 History mcg (2,000 unit) tablet (Vitamin D3) famotidine 20 mg tablet 20 mg PO BID 11/13/23 11/13/23 History losartan 50 mg tablet 50 mg PO HS 11/13/23 11/13/23 History multivitamin 1 tab PO DAILY 11/13/23 11/13/23 History simvastatin 20 mg tablet 20 mg PO HS 11/13/23 11/13/23 History Patient History Medical History CKD (chronic kidney disease), stage III Kidney stone Pre-diabetes Hyperlipidemia HTN (hypertension) Esophageal reflux Surgical History Hx of colonoscopy Hx of mastectomy "for gynecomastia - 1966" Hx of appendectomy Family History Other Cancer Coronary heart disease Diabetes Social History Smoking Status: Never smoker Hx Alcohol Use: No Hx Substance Use: No Preferred Language: Pashto Communication Ability: Effective Medication Administration Professional Required: No Beliefs That Will Affect Care: None marital status: Current Living Situation: Spouse Feels Safe at Home: Yes Assistive Devices: None Review of Systems Review of Systems: ROS was performed with pertinent positives noted as above; all other systems negative Physical Exam Constitutional: well developed and well nourished; no acute distress Respiratory: normal respiratory effort; no respiratory distress and no labored breathing Gastrointestinal (Abdomen): Inspection/Auscultation: abdomen normal to inspection Musculoskeletal: Head/Neck/Chest: normocephalic Neurologic: moves all extremities and awake Psychiatric: Orientation: alert and oriented x 3 Results & Data Vital Signs (Past 12 Hours) Vital Signs Temp Pulse Pulse Resp BP BP Pulse Ox 11/14/23 07:11 36.6 C 61 16 149/70 H 97 11/14/23 03:55 53 L 165/69 H 11/13/23 22:00 11/13/23 21:53 36.6 C 59 L 16 174/83 H 98 11/13/23 21:30 55 L 16 127/62 96 11/13/23 21:00 55 L 16 127/62 96 O2 Del Method 11/14/23 07:11 Room Air 11/14/23 03:55 11/13/23 22:00 Room Air 11/13/23 21:53 Room Air 11/13/23 21:30 Room Air 11/13/23 21:00 Room Air PG Care Time/CCT Total # of Minutes Spent Total Time Spent with Patient: Total time spent is greater than 50% in coordination of care (as documented) at patient's floor/unit and/or counseling patient: Coding Level of Care Code 01495 INT INP/OBS CARE 2/55MIN Diagnoses Left ureteral calculus N20.1 Hydronephrosis due to obstruction of ureter N13.1 Acute kidney injury superimposed on CKD N17.9; N18.9
--- NOTE | 2023-11-14 13:09 | Discharge Summary ---
Date of Service November 14, 2023 Admission HPI Per Admitting Provider This is a 78-year-old male who has a significant past medical history of HTN, HLD, prediabetes, GERD, history of nephrolithiasis and CKD stage III who presents to ED secondary to left flank pain. His is at bedside who also helps elicit history. He states he woke up this morning with a pain in his left hip. 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 When he got to working with his son his pain traveled to his left flank became very severe, sharp and stabbing and was associated with 3 episodes of bilious vomit. He took ibuprofen 600 mg on 2 separate occasions today with minimal relief of his sym ptoms. He has prior history of kidney stones and this felt similar. He then reported home after not feeling well and states that he was pacing about as he could not get comfortable to because of pain. He opted to present to ED. He was hypertensive but was otherwise hemodynamically stable on admission. His labs were not indicative of sepsis and his urinalysis was negative. CT abdomen pelvis revealed a 3 mm left UVJ obstructing stone with mild left hydronephrosis. He also had a new TASH with an elevated creatinine at 2.24 from his baseline of 1.4. He did receive IV Toradol, IV morphine and IV fluids in the ED. 4 mg of IV morphine made him, "loopy." Admission Exam Per Admitting Provider Constitutional: WD/WN, vitals as above, NAD, sitting up in bed, pleasant, conversing easily Head: Normocephalic, Atraumatic Eyes: PERRL, conjunctivae normal, anicteric sclerae ENMT: external ear and nose normal, oropharynx normal Neck: trachea midline, no thyromegaly normal visual inspection Respiratory: normal respiratory effort, lungs clear to auscultation, no wheeze, rales, rhonchi. Normal insp/exp effort, no accessory muscle use Cardiovascular: RRR, no murmur, no edema Vessels: no JVD or carotid bruit Chest: normal inspection of chest Abdomen: normal bowel sounds, soft, nontender, no hepatosplenomegaly, no CVA tenderness Musculoskeletal: no cyanosis or clubbing, extremities motor strength 5/5 Skin: no rashes, warm and dry normal turgor Neurologic: PERRL, EOMI, accommodation nl, no face palsy, no dysarthria CN's II-XI intact bilaterally and moves all extremities Psychiatric: A+Ox3, euthymic affect Lymphatic: no cervical or axillary lymphadenopathy : deferred Principal Diagnosis (1) Left ureteral calculus: (2) Hydronephrosis due to obstruction of ureter: (3) Acute kidney injury superimposed on CKD: Discharge Exam Constitutional: WD/WN, vitals as above, NAD, sitting up in bed, pleasant, conversing easily Respiratory: normal respiratory effort, lungs clear to auscultation, no wheeze, rales, rhonchi. Normal insp/exp effort, no accessory muscle use Cardiovascular: RRR, no murmur, no edema Vessels: no JVD or carotid bruit Chest: normal inspection of chest Abdomen: normal bowel sounds, soft, nontender, no hepatosplenomegaly Musculoskeletal: no cyanosis or clubbing, extremities motor strength 5/5 Skin: no rashes, warm and dry normal turgor Neurologic: PERRL, EOMI, accommodation nl, no face palsy, no dysarthria CN's II- XI intact bilaterally and moves all extremities Psychiatric: A+Ox3, euthymic affect Discharge Data Allergies Allergy/AdvReac Type Severity Reaction Status Date / Time propofol Allergy Intermediate SEIZURE Verified 11/13/23 18:19 Consultations 11/13/23 17:50 ED Decision to Admit Stat 11/13/23 18:15 Consult Urology Routine Ordered Studies 11/13/23 16:02 CT stones [CT abd pelvis wo con] Stat Hospital Course (1) Left ureteral calculus: (2) Hydronephrosis due to obstruction of ureter: (3) Acute worsening of stage 3 chronic kidney disease: (4) HTN (hypertension): (5) Hyperlipidemia: Plan This is a 78-year-old male who has a significant past medical history of HTN, HLD, prediabetes, GERD, history of nephrolithiasis and CKD stage III who presents to ED secondary to left flank pain. CT abdomen and pelvis: . A 3 mm obstructing stone within the left ureterovesical junction resulting in mild left hydronephrosis. Patient creatinine was found to be elevated of 2.4. Patient was admitted to general medical floor; was started on IV hydration. Patient spontaneously passed the stone; sent for analysis Creatinine down trended with IV hydration to baseline Patient was discharged home with instruction to follow-up with PCP. Recommended to hold off on losartan for next 3 days. Patient to follow-up with urology. Please note the above document was generated using voice recognition software. It may contain grammatical, syntax or spelling errors. Any formal questions or concerns about the content, text or information contained within the body of this dictation should be directly addressed to the provider for clarification Total Time Total Time Spent Total Time Spent (In Minutes): 35 Total Time Includes: Examination of the Patient, Discharge Planning, Medication Reconciliation, Communication With Other Providers and Other Discharge Plan Discharge Items Patient Disposition: Home - Self-Care Reason For Visit: LEFT UVJ STONE, TASH Discharge Diagnosis: Left UVJ stone TASH on CKD Activity: Resume your previous activity Non-emergency contact: Primary Care Provider Call non-emergency contact if: you have any medication questions Follow-up/Referrals: Meredith Aguila CRNP [Nurse Practitioner] - (The Urology office will contact you for a follow up appointment.) Margaret Maurice MD [Primary Care Provider] - (Date & Time 11/20/2023 9:00 AM Provider Maninder Napier MD Department Family Medicine [facility] ) Diet: Regular Addtl Attending Provider Instructions: You were admitted to the hospital with Ureter stone. It passed sponatenously; you don't need further treatment for the time being. Hold Losartan till Friday as your kidney are recovering An appointment with pcp will me made for you next week. Pending Studies at Discharge: No Stand-Alone Forms: My [facility] [employer], Smoking Cessation Medications and DC Order Prescriptions: Continued amlodipine 5 mg tablet 5 mg PO DAILY aspirin 81 mg Tablet,Delayed Release (Dr/Ec) 81 mg PO HS famotidine 20 mg tablet 20 mg PO BID simvastatin 20 mg tablet 20 mg PO HS multivitamin Tablet 1 tab PO DAILY cholecalciferol (vitamin D3) [Vitamin D3] 50 mcg (2,000 unit) Tablet 50 mcg PO DAILY Held losartan 50 mg tablet 50 mg PO HS Hold Instructions: Resume on 11/17/23. Discharge Orders: Discharge Order (Routine); Ordered 11/14/23 Ordered By: Ricky Parsons/Other Patient Handouts: Identifying Kidney Stones Admission Data Admit Date/Time: 11/13/23 18:58 Attending Provider: Ricky Sykes Admit Provider: Gabe Weems Primary Care Provider: Margaret Maurice Other Providers: Serina Schilling; Montana Mantilla Other Interventions: Discharge Summary Assessment (RN) Last Done: 11/14/23 10:30
--- OUTSIDE RECORDS SUMMARY | 2023-11-14 18:07 | External Medical Summary | Summary of Care ---
Author Name Unknown Organization [facility] Address [address] [place] [address] Phone [phone] Care Team Providers Care Tourist Information Assistant Name Role Phone Margaret Maurice MD Primary Care Provide r Reason for Visit * Reason Comments Re-Check Encounter Details Date Type Department Care Team (Late st Contact Info) Description 08/07/2023 8:40 AM EST Office Visit Family Medicine [address] [place] [phone] Margaret Maurice MD [address] [place] [address] [place] [phone] Chronic kidney disease, stage 3a (HCC)*; Hyperlipidemia with target LDL less than 100; Gastroesophageal reflux disease with esophagitis without hemorrhage; Primary hypertension Allergies Active Allergy Reactions Criticality Noted Date Comments Propofol Seizure High 10/28/2011 documented as of this encounter (statuses as of 08/07/2023) Medications Medication Sig Dispensed Refills Start Date End Date Status VITAMIN D 2000 UNITS PO CAPS Take by mouth 2,000 Units at bedtime . 0 04/19/2013 Active Aspirin 81 MG Tablet Take 1 Tablet by mouth at bedtime. 0 Active Multivitamin Adults Oral Tablet Take by mouth daily . 0 Active Losartan Potassium 50 MG Oral Tablet (Cozaar)Indications: Chronic kidney disease, stage 3a (HCC),Hypertensive kidney disease with stage 3a chronic kidney disease (HCC),Primary hypertension TAKE ONE TABLET BY MOUTH IN THE MORNING 100 Tablet 2 08/26/2022 10/21/2023 Active amLODIPine Besylate 5 MG Oral Tablet (Norvasc)Indications :HTN, goal below 140/90 Take 1 Tablet by mouth in the morning. 90 Tablet 1 05/01/2023 Active Simvastatin 20 MG Oral Tablet (Zocor)Indications:H yperlipidemia with target LDL less than 100 TAKE 1 TABLET BY MOUTH EVERY NIGHT AT BEDTIME 100 Tablet 2 07/11/2023 07/10/2024 Active Famotidine 20 MG Oral Tablet (Pepcid)Indications: Gastroesophageal reflux disease with esophagitis without hemorrhage TAKE ONE TABLET BY MOUTH TWICE A DAY 200 Tablet 2 07/11/2023 07/10/2024 Active documented as of this encounter (statuses as of 08/07/2023) Active Problems Problem Noted Date Diagnosed Date Prediabetes 04/16/2021 Overview: Per Prediabetes protocol Chronic kidney disease, stage 3a 12/12/2020 Overview: Per CKD protocol Hypertensive kidney disease with stage 3a chronic kidney disease 08/17/2020 Primary hypertension 04/29/2016 ADVANCE DIRECTIVE INFORMATION 09/13/2005 Overview: No, Advance Directive brochure given to patient. Gastroesophageal reflux dise ase with esophagitis without hemorrhage Hyperlipidemia with target LDL less than 100 Overview: ICD-10 update of inactive term documented as of this encounter (statuses as of 08/07/2023) Resolved Problems Problem Noted Date Diagnosed Date Resolved Date Kidney stones 03/23/2014 05/22/2017 Ureteral stone 03/23/2014 05/22/2017 Kidney disease, chronic, sta ge III (GFR 30-59 ml/min) 03/29/2011 12/25/2017 Overview: GFR 55.4 Vitamin D deficiency 03/19/2011 017 Dyslipidemia, goal LDL below 130 08/30/2009 04/09/2012 Dyslipidemia, goal to be determined 07/11/2009 08/30/2009 Overview: Per Lipid Taxonomy. HTN, goal below 140/90 06/09/200910/15 Overview: Modified per HTN Taxonomy. ROTATOR CUFF SYND NOS 10/02/20042016 Impotence of organic origin 09/25/2004 05/22/2017 Overview: try Viagra ACUTE STOMACH ULCER NOS 02/15/200408/05 Screening for prostate cancer 12/25/2000 08/29/2008 BENIGN HYPERTENSION 08/06/19 24 Overview: Modified per HTN Taxonomy. PURE HYPERCHOLESTEROLEM 03/2009 Overview: Per Lipid Taxonomy. Dermatophytosis of nail 05/04 HTN, goal below 130/80 10/18 HTN, goal below 140/90 04/29 Benign hypertension with CKD (chronic kidney disease) stage III 08/17/2020 documented as of this encounter (statuses as of 08/07/2023) Immunizations Name Administration Dates Next Due COVID-19 mRNA, LNP-s, No Pre serve, 2-Dose Series (Moderna) 11/10/2020,10/13/2020 Pneumococcal Conjugate Vacc, 13 Valent (Prevnar) 10/24/2014 Pneumococcal Polysaccharide PPV23 (Pneumovax) TD - Tetanus/Diptheria (ADULT) 11/05/2004 TDAP (age 10 and older)(Boostrix) 05/11/2013 TDAP (age 11 and older)(Adacel) 03/02/2010 Varicella Zoster Vaccine (Adult) 04/01/2011 Zoster Vaccine Recombinant (Shingrix) 06/12/2022 ,02/20/2022 documented as of this encounter Social History Tobacco Use Types Packs/Day Years Used Date Smoking Tobacco: Never Smokeless Tobacco: Never Alcohol Use Standard Drinks/Week Comments No 0 (1 standard drink = 0.6 oz pur e alcohol) PHQ-2 Answer Date Recorded PHQ Adult Total Score 0 04/11/2023 Hunger Vital Sign Answer Date Recorded Within the past 12 months, y ou worried that your food would run out before you got the money to buy more. Never true 04/11/20 23 Within the past 12 months, t he food you bought just didn't last and you didn't have money to get more. Never true 04/11/2023 Sex and Gender Information Value Date Recorded Sex Assigned at Male 04/06/2021 8:10 AM EDT Gender Identity Male 04/06/2021 8:10 AM EDT Sexual Orientation Straight 04/06/2021 8: 10 AM EDT Job Start Date Occupation Industry Not on file Not on file Not on file documented as of this encounter Last Filed Vital Signs Vital Sign Reading Time Taken Comments Blood Pressure 136/74 08/07/2023 8:34 AM EST Pulse 76 08/07/2023 8:34 AM EST Temperature 36.2 C (97.2 F) 08/07/2023 8:34 AM ES T Respiratory Rate - - Oxygen Saturation 99% 08/07/2023 8:34 AM EST Inhaled Oxygen Concentration - - Weight 90.7 kg (200 lb) 08/07/2023 8:34 AM EST Height - - Body Mass Index 29.76 05/01/2023 8:53 AM EDT documented in this encounter Progress Notes * Margaret Maurice MD - 08/07/2023 8:41 AM EST Subjective: HPI: Colin Mcclelland is a 78 year old male with hx of HTN, CKD III, GERD, HLD, prediabetes, R shoulder surgery, Mild aortic regurgutation seen for HTN and CKD III: - currently on Losartan 50mg daily, Amlodipine 5mg daily - denied any leg swelling or HAs GERD: - on Pepcid Patient Active Problem List Diagnosis Code Gastroesophageal reflux disease with esophagitis without hemorrhage K21.00 ADVANCE DIRECTIVE INFORMATION Hyperlipidemia with target LDL less than 100 E78.5 Primary hypertension I10 Hypertensive kidney disease with stage 3a chronic kidney disease (HCC) I12.9, N18.31 Chronic kidney disease, stage 3a (HCC) N18.31 Prediabetes R73.03 Current Outpatient Medications Medication Sig Dispense Refill VITAMIN D 2000 UNITS PO CAPS Take by mouth 2,000 Units at bedtime . Aspirin 81 MG Tablet Take 1 Tablet by mouth at bedtime. Multivitamin Adults Oral Tablet Take by mouth daily . Losartan Potassium 50 MG Oral Tablet (Cozaar) TAKE ONE TABLET BY MOUTH IN THE MORNING 100 Tablet 2 amLODIPine Besylate 5 MG Oral Tablet (Norvasc) Take 1 Tablet by mouth in the morning. 90 Tablet 1 Simvastatin 20 MG Oral Tablet (Zocor) TAKE 1 TABLET BY MOUTH EVERY NIGHT AT BEDTIME 100 Tablet 2 Famotidine 20 MG Oral Tablet (Pepcid) TAKE ONE TABLET BY MOUTH TWICE A DAY 200 Tablet 2 No current facility-administered medications for this visit. Past Medical History: Diagnosis Date Acute gastritis without mention of hemorrhage 08/27/76 Hospitalized [facility] 08/27 to 08/29 for epigastric pain Benign hypertension with CKD (chronic kidney disease) stage III (HCC) Benign neoplasm of colon 09/13/09 polyps x6, path shows hyperplastic polyps, repeat in 2 years Chalazion 10/26/98 abscess right upper lid treated with Keflex Chest pain, non-cardiac 03/07/[address] Jeong who feels chest pain is noncardiac Chest pain, non-cardiac 04/08/96 Chest pain, possible reflux. Stress cardiolyte negative Dyslipidemia, goal to be determined 02/12/89 chol 223, hdl 50, tg 498 HTN, goal below 140/90 10/12/98 BP 168/102. Atenolol 50 mg started HTN, goal below 140/90 02/27/99 Side effects from Atenolol. Med d/c'd because of 21 pound weight loss HTN, goal below 140/90 06/25/99 BP was up so he was started on Lotensin which he is tolerating better Hyperlipidemia LDL goal < 100 Impotence of organic origin 09/25/04 try Viagra Infective otitis externa 02/27/86 Seen in ER for otitis externa, treated with Cortisporin Irritable bowel syndrome 12/26/81 Treated with Tagamet and Mylanta Kidney disease, chronic, stage III (GFR 30-59 ml/min) ([facility]) 03/29/11 GFR 55.4 Kidney stone on right side 11/03/13 [facility] ER calcium oxalate Lumbago 12/27/77 Off work one week for lumbar strain. RX Tylenol #3 and Flexeril Lumbago 12/04/94 Hurt back after falling off a chair at work. Rx Prednisone Mixed dyslipidemia 11/10/[address] Nielson about lipids. TG 476, apolipo B-100 62 (nl) Mixed dyslipidemia 11/14/80 Chol 315, TG 405 Mixed dyslipidemia 12/27/81 Chol 299, TG 459 Mixed dyslipidemia 12/26/98 Zocor 40 mg started because lipids continue to be high Need for hepatitis C screening test 04/27/15 negative Obesity, BMI not known 10/19/98 weight 223.5. Started exercise and low fat diet Melanie-Schlatter's disease Other nerve root and plexus disorders 02/14/76 Hospitalized [facility] 02/13 to 02/20 for intercostal neuritis Prurigo 05/08/89 Proof Tester's nodule removed from chin Pyogenic granuloma 08/05/00 Granuloma formed on middle left finger after laceration Reflux esophagitis LA Grade B Renal colic 03/16/14 ER right side with hydronephrosis Rotator cuff syndrome 09/11/04 left Vasovagal syncope 08/05/2017 watched overnight at [facility], telemetry normal Past Surgical History: Procedure Laterality Date PRITI HERNANDEZW/ROTATOR CUFF Right 09/01/2020 ARTHROSCOPY SHOULDER ROTATOR CUFF performed by Daniel Khan DO at OR [facility] ARTHO,SHOXOCHITL,W/ROTATOR CUFF Right 09/04/2020 ARTHROSCOPY SHOULDER ROTATOR CUFF performed by Daniel Khan DO at OR [facility] COLONOSCOPY 03/08/2004 COLONOSCOPY W/ LESION REMOVAL, SNARE 09/13/2009 polyps x6, path shows hyperplastic polyps, repeat in 2 years COLONOSCOPY, DIAGNOSTIC (RECTUM) 11/05/2016 normal, repeat 5 yrs/COLONOSCOPY FLEXIBLE PROXIMAL DIAGNOSTIC performed by Patrick Leonard MD at ENDOSCOPY [facility] COLONOSCOPY, DIAGNOSTIC (RECTUM) 12/04/2021 normal, repeat 5 yrs / COLONOSCOPY FLEXIBLE PROXIMAL DIAGNOSTIC performed by Richar Johnson ENDOSCOPY [facility] COLORECTAL CANCER SCREEN; COLON 10/24/2011 wnl repeat in [address] ABDOMEN/PELVIS 11/03/2013 mild hydroureter with punctate stone UPJ, diverticulosis, otherwise normal CXR 2 VIEWS AP/PA & LATERAL 05/14/1994 Normal ECHO, STRESS (EXERCISE) 03/23/2008 LVEF nl, EF 60-65%, no wall motion abnormalities ECHO,TTE W/O SPECTRAL + COLOR-FLOW DOPPLER 05/26/1996 Echocardiogram normal LV size, wall thickness and function with EF 65%. EGD, FLEXIBLE, DIAGNOSTIC 01/22/2018 LA grade B esophagitis, normal stomach, small hiatal hernia, (EGD), FLEXIBLE, TRANSORAL, DIAGNOSTICperformed by Mick Maurer MD at ENDOSCOPY [facility] FLUORO BARIUM ENEMA 01/05/1982 Barium enema [place]ron[place]; FLUORO UPPER GI W SMALL BOWEL 02/20/1976 UGI showed mild deformity of the duodenal bulb molt likely from previous ulcer FLUORO UPPER GI W SMALL BOWEL 06/17/1977 UGI series showed mild irritability fo the bulb but no active ulcer FLUORO UPPER GI W SMALL BOWEL 01/03/1982 UGI series showed gastroesophageay reflux GALLBLADDER/CHOLECYSTO W/CONT 02/20/1976 Oral cholecystogram negative GALLBLADDER/CHOLECYSTO W/CONT 06/17/1977 Oral cholecystogram negative HOLTER MONITOR 03/05/1985 24 hour holter monitor normal IOF XR ANKLE, 3 OR MORE VIEWS 01/21/1997 right ankle has small calcaneal spur, no fracture MASTECTOMY FOR GYNECOMASTIA 1966 MRI KNEE WO CONTRAST 07/23/2010 [place] Schlatter's disease, degenerative changes to cartilage, marrow edema NM CARDIAC THALLIUM STRESS, OUTSIDE FILMS 04/22/1996 Stress sestamibi showed no convincing evidence of ischemia or scar REMOVAL OF APPENDIX 1957 Appendectomy REPAIR RUPTURED ROTATOR CUFF, CHRON 01/28/2005 left RMV BENIGN LSN FACE <=.5CM 05/08/1989 Proof Tester's nodule removed off chin SHOULDER ARTHROSCOPY, BICEPS TENODESIS Right 09/01/2020 ARTHROSCOPY SHOULDER BICEP TENODESIS performed by Daniel Khan DO at OR [facility] SHOULDER ARTHROSCOPY, BICEPS TENODESIS Right 09/04/2020 ARTHROSCOPY SHOULDER BICEP TENODESIS performed by Daniel Khan DO at OR [facility] SHOULDER ARTHROSCOPY/DECOMPRESSION Right 09/01/2020 ARTHROSCOPY SHOULDER SUBACROMIAL DECOMPRESSION performed by Daniel Khan DO at OR [facility] SHOULDER ARTHROSCOPY/DECOMPRESSION Right 09/04/2020 ARTHROSCOPY SHOULDER SUBACROMIAL DECOMPRESSION performed by Daniel Khan DO at OR [facility] UPPER GI ENDOSCOPY/EXAM 03/08/2004 US - GALL BLADDER - MOBILE 01/05/1982 Normal US ABDOMEN LIMITED 08/10/2009 normal US RENAL 10/13/1998 Normal bilateral renal sonogram US RENAL 03/16/2014 mild right hydronephrosis, 6 mm nonobstructing stone right lower pole, left kidney normal VASC ANKLE BRACHIAL INDEX 10/30/2006 1.1 normal VASC DUPLEX CAROTID BILAT 03/10/2008 no stenosis XR ELBOW 2 VIEWS 01/25/1993 Small olecranon spur right elbow XR L SPINE AP AND LATERAL 11/11/1980 normal XR L SPINE AP AND LATERAL 02/15/1985 Normal XR L SPINE AP AND LATERAL 02/21/1989 Mild degenerative disc disease at L2-3 and L4-5 Review of patient's allergies indicates: Allergen Reactions Propofol Seizure Family History Problem Relation Age of Onset Cancer Grandmother (Maternal) colon Diabetes Father Heart Disorder Father myocardial infarction Hypertension Father Diabetes Brother Rectal cancer Brother Neurological Disorder Mother alzheimers Heart Disorder Brother Atrial fib and cardiomyopathy Rectal cancer Brother Heart Disorder Brother AFib Social History Tobacco Use Smoking status: Never Smokeless tobacco: Never Substance Use Topics Alcohol use: No Vaping/E-Cigarette Use Vaping/E-Cigarette Use Never User Vaping/E-Cigarette Substances Vaping/E-Cigarette Devices ROS: -Per HPI OBJECTIVE: BP 136/74 | Pulse 76 | Temp 36.2 C (97.2 F) (Tympanic) | Wt 90.7 kg (200 lb) | SpO2 99% | BMI 29.76 kg/m | BSA 2.1 m PHYSICAL EXAM: Vitals are reviewed General:. NAD, well developed HEENT:. Normal Conjunctiva, EOMI Cardiac:.systolic murmur, Normal S1, S2 Lungs:. CTA, no wheezing or crackles MSK:. Normal gait Psych:. AAOx3, normal affect ASSESSMENT/PLAN: BP wnl - continue losartan and amlodipine Chronic kidney disease, stage 3a (HCC) (Primary) - BASIC METABOLIC PANEL Hyperlipidemia with target LDL less than 100 - on zocor Gastroesophageal reflux disease with esophagitis without hemorrhage - on pepcid Primary hypertension - BASIC METABOLIC PANEL Follow Up: Return in about 6 months (around 02/05/2024). Margaret Maurice MD Family medicine, [address] [address] documented in this encounter Nursing Notes * Kitty Briseno LPN - 08/07/2023 8:33 AM EST 6 month recheck Trouble with fingers, lock up frequently when using. documented in this encounter Plan of Treatment Upcoming Encounters Date Type Department Care Team (Late st Contact Info) Description 02/06/2024 8:20 AM EDT Office Visit Family Medicine [address] [place] [phone] Margaret Maurice MD [address] [place] [address] [place] [phone] 03/08/2024 8:40 AM EDT Office Visit Dermatology [address] [place] [phone] Char Cruz PA-C [address] [place] [address] [place] [phone] 04/15/2024 9:00 AM EDT Nurse Only Ancillary [address] [place] [phone] Dianne, Nurse Annual [address] [place] [phone] Pending Results Name Type Priority Associated Diagnoses Date /Time BASIC METABOLIC PANEL Lab Routine Chronic kidney disease, stage 3a (HCC) Primary hypertension 08/07/2023 8:53 AM EST Scheduled Procedures Name Priority Associated Diagnoses Date/Ti me COLONOSCOPY FLEXIBLE PROXIMA L DIAGNOSTIC Recall Family history of colon cancer Personal history of colonic polyps Health Maintenance Due Date Last Done Comments COVID-19 Vaccine (2022- season) 2023 11/10/2020, 10/13/2020 Influenza Vaccine (FLU shot) (#1) 2023 05/22/2017 (Refused) DTaP,Tdap,and Td Vaccines (3 - Td or Tdap) 05/11/2023 05/11/2013, 03/02/2010, 11/05/2004 CKD PHOS USE SMARTSET 61686 08/26/202308/05, 02/19/2021, 08/17/2020, Additional history exists GFR 08/27/2023 02/24/2023, 08/05, 02/20/2022, Additional history exists Albumin/Creatinine Ratio 02/25/2024 023, 02/20/2022, 02/19/2021, Additional history exists CKD HGB USE SMARTSET 83752 02/25/202402/24, 02/24/2023, 08/26/2022, Additional history exists HbA1c 02/25/2024 02/24/2023, 02/02, 06/22/2021, Additional history exists Depression Screening 04/11/2024 04/11/2023 COLONOSCOPY-EVERY 5 YRS AGES 18-100 12/04/2026 12/04/2021, 12/04/2021, 11/05/2016, Additional history exists Pneumococcal Vaccine: 65+ Years Completed 10/24/2014, 04/01/2011 Zoster Vaccines Completed 06/12/2022, 02/02, 04/01/2011 GARDASIL-HPV IMMUNIZATION SERIES Aged Out No longer eligible based on patient's age to complete this topic Hepatitis B Aged Out No longer eligi ble based on patient's age to complete this topic MENINGOCOCCAL (MENACTRA/MENVEO) Aged Out No longer eligible based on patient's age to complete this topic documented as of this encounter Medical Devices Implanted Type Area Infantry Officer Device Identifier Shelf Expiration Date Model / Serial / Lot Fibertak Button Implant Implanted:Qty: 1 on 09/04/2020 by Daniel Khan, at OR [facility] Right: Shoulder [employer] 03/03/2024 [id number] / / [id number] documented as of this encounter Visit Diagnoses Diagnosis Chronic kidney disease, stage 3a (HCC)- Primary Hyperlipidemia with target LDL less than 100 Other and unspecified hyperlipidemia Gastroesophageal reflux disease with esophagitis without hemorrhage Primary hypertension Unspecified essential hypertension documented in this encounter Advance Directives Latest Code Status on File Code Status Date Activated Date Inactivated Comments Full Code 09/04/2020 9:58 AM 09/04/2020 6:40 PM This or sushma reflects the patients wishes and were consensually agreed upon. Care Teams Tourist Information Assistant Relationship Specialty Start Date End Date Margaret Maurice MD [address] [place] [address] [place] [phone] PCP - General Family Medicine 08/26/22 documented as of this encounter"
--- OUTSIDE RECORDS SUMMARY | 2023-11-14 18:07 | External Medical Summary | Summary of Care ---
Author Name Unknown Organization [facility] Address [address] [facility] [place] [address] Phone [phone] Care Team Providers Care Pipe Insulator Name Role Phone Margaret Maurice MD Primary Care Provide r Reason for Visit * Reason Comments Medication Refill Encounter Details Date Type Department Care Team (Late st Contact Info) Description 10/08/2023 Refill Family Medicine [address] [phone] Maninder Napier MD [address] [place] [address] [place] [address] Chronic kidney disease, stage 3a (HCC); Hypertensive kidney disease with stage 3a chronic kidney disease (HCC); Primary hypertension Allergies Active Allergy Reactions Criticality Noted Date Comments Propofol Seizure High 10/28/2011 documented as of this encounter (statuses as of 10/09/2023) Medications Medication Sig Dispensed Refills Start Date End Date Status VITAMIN D 2000 UNITS PO CAPS Take by mouth 2,000 Units at bedtime . 0 04/19/2013 Active Aspirin 81 MG Tablet Take 1 Tablet by mouth at bedtime. 0 Active Multivitamin Adults Oral Tablet Take by mouth daily . 0 Active Simvastatin 20 MG Oral Tablet (Zocor)Indications :Hyperlipidemia with target LDL less than 100 TAKE 1 TABLET BY MOUTH EVERY NIGHT AT BEDTIME 100 Tablet 2 07/11/2023 07/10/2024 Active Famotidine 20 MG Oral Tablet (Pepcid)Indication s:Gastroesophageal reflux disease with esophagitis without hemorrhage TAKE ONE TABLET BY MOUTH TWICE A DAY 200 Tablet 2 07/11/2023 07/10/2024 Active Losartan Potassium 50 MG Oral Tablet (Cozaar)Indication s:Chronic kidney disease, stage 3a (HCC),Hypertensive kidney disease with stage 3a chronic kidney disease (HCC),Primary hypertension TAKE ONE TABLET BY MOUTH IN THE MORNING 100 Tablet 3 10/09/2023 10/08/2024 Active amLODIPine Besylate 5 MG Oral Tablet (Norvasc)Indicatio ns:HTN, goal below 140/90 Take 1 Tablet by mouth in the morning. 90 Tablet 1 10/09/2023 Active Losartan Potassium 50 MG Oral Tablet (Cozaar)Indication s:Chronic kidney disease, stage 3a (HCC),Hypertensive kidney disease with stage 3a chronic kidney disease (HCC),Primary hypertension TAKE ONE TABLET BY MOUTH IN THE MORNING 100 Tablet 2 08/26/2022 10/08/2023 Discontinued (Refill) documented as of this encounter (statuses as of 10/09/2023) Active Problems Problem Noted Date Diagnosed Date [...] as of this encounter (statuses as of 10/09/2023) Resolved Problems Problem Noted Date Diagnosed Date [...] prostate cancer 12/25/2000 08/29/2008 BENIGN HYPERTENSION 08/06/19 Overview: Modified per HTN Taxonomy. PURE HYPERCHOLESTEROLEM 03/2009 Overview: Per Lipid Taxonomy. Dermatophytosis of nail 05/04 HTN, goal below 130/80 10/18 HTN, goal below 140/90 04/29 Benign hypertension with CKD (chronic kidney disease) stage III 08/17/2020 documented as of this encounter (statuses as of 10/09/2023) Immunizations Name Administration Dates Next Due COVID-19 [...] on file documented as of this encounter Miscellaneous Notes * Telephone Encounter - Josy Alston RPh - 10/09/2023 11:52 AM ESTSigned Prescriptions: Disp Refills Losartan Potassium 50 MG Oral Tablet (Coza*100 Ta*3 Sig: TAKE ONE TABLET BY MOUTH IN THE MORNINGAuthorizing Provider: MARGARET MAURICEOrdersydney User: JOSY ALSTON documented in this encounter Plan of Treatment Upcoming Encounters Date Type Department Care Team (Late st Contact Info) Description 02/06/2024 8:20 AM EDT Office Visit Family Medicine [address] [place] [phone] Margaret Maurice MD [address] [place] [address] [place] [phone] 03/08/2024 8:40 AM EDT Office Visit Dermatology [address] [place] [phone] Char Cruz PA-C [address] [place] [address] [place] [phone] 04/15/2024 9:00 AM EDT Nurse Only Ancillary Ivania Greene[address] [place] [address] [place], Nurse [address] [place] [phone] Scheduled Procedures Name Priority Associated Diagnoses Date/Ti me COLONOSCOPY FLEXIBLE PROXIMA L DIAGNOSTIC Recall Family history of colon cancer Personal history of colonic polyps Health Maintenance Due Date Last Done Comments COVID-19 Vaccine ( - 2022- season) 2023 11/10/2020, 10/13/2020 Influenza Vaccine (FLU shot) (#1) 2023 05/22/2017 (Refused) DTaP,Tdap,and Td Vaccines (3 - Td or Tdap) 05/11/2023 05/11/2013, 03/02/2010, 11/05/2004 CKD PHOS USE SMARTSET 01771 08/26/202308/05, 02/19/2021, 08/17/2020, Additional history exists GFR 02/05/2024 08/07/2023, 02/02, 08/26/2022, Additional history exists Albumin/Creatinine Ratio 02/25/2024 023, 02/20/2022, 02/19/2021, Additional history exists CKD HGB USE SMARTSET 32226 02/25/202402/24, 02/24/2023, 08/26/2022, Additional history exists HbA1c [...] this encounter Medical Devices Implanted Type Area Glass Mould Cleaner Device Identifier Shelf Expiration Date Model / Serial / Lot Biocomposite Swivelock Suture Halsey Double Loaded Implanted:Qty: 3 on 09/04/2020 by Daniel Khan DO at OR [facility] Right: Shoulder [employer] 05/03/2022 AR-2324BCT -2 / / [id number] Biocomposite Knotless Swivelock Halsey 4.75x19.1 Implanted:Qty: 1 on 09/04/2020 by Daniel Khan DO at OR [facility] Right: Shoulder [employer] 06/03/2024 [facility]2324[facility] CTT / / [id number] Biocomposite Knotless Swivelock Halsey 4.75x19.1mm Implanted:Qty: 1 on 09/04/2020 by Daniel Khan DO at OR [facility] Right: Shoulder [employer] 06/03/2024 [facility]2324[facility] CT / / [id number] Fibertak Button Implant Implanted:Qty: 1 on 09/04/2020 by Daniel Khan DO at OR [facility] Right: Shoulder [employer] 03/03/2024 AR-3680 / / [id number] documented as of this encounter Visit Diagnoses Diagnosis Chronic kidney disease, stage 3a (HCC) Hypertensive kidney disease with stage 3a chronic kidney disease (HCC) Primary hypertension Unspecified essential hypertension documented in this encounter Advance Directives Latest Code Status on File Code Status Date Activated Date Inactivated Comments Full Code 09/04/2020 9:58 AM 09/04/2020 6:40 PM This or sushma reflects the patients wishes and were consensually agreed upon. Care Teams Pipe Insulator Relationship Specialty Start Date End Date Margaret Maurice MD [address] [place] [address] [place] [phone] PCP - General Family Medicine 08/26/22 documented as of this encounter
--- OUTSIDE RECORDS SUMMARY | 2023-11-14 18:07 | External Medical Summary | Summary of Care ---
Author Name Unknown Organization [facility] Address [address] [facility] [place] [address] Phone [phone] Care Team Providers Care Car Wiper Name Role Phone Margaret Maurice MD Primary Care Provide r Reason for Visit * Reason Comments Medication Refill Encounter Details Date Type Department Care Team (Late st Contact Info) Description 07/10/2023 Refill Family Medicine [address] [place] [phone] Maninder Guo MD [address] [place] [address] [place] [phone] Hyperlipidemia with target LDL less than 100; Gastroesophageal reflux disease with esophagitis without hemorrhage Allergies Active Allergy Reactions Criticality Noted Date Comments Propofol Seizure High 10/28/2011 documented as of this encounter (statuses as of 07/11/2023) Medications Medication Sig Dispensed Refills Start Date [...] IN THE MORNING 100 Tablet 2 08/26/2022 10/20/2023 Active amLODIPine Besylate 5 MG Oral Tablet (Norvasc)Indicatio ns:HTN, goal below 140/90 Take 1 Tablet by mouth in the morning. 90 Tablet 1 05/01/2023 Active Simvastatin 20 MG Oral Tablet (Zocor)Indications :Hyperlipidemia with target LDL less than 100 TAKE 1 TABLET BY MOUTH EVERY NIGHT AT BEDTIME 100 Tablet 2 07/11/2023 07/10/2024 Active Famotidine 20 MG Oral Tablet (Pepcid)Indication s:Gastroesophageal reflux disease with esophagitis without hemorrhage TAKE ONE TABLET BY MOUTH TWICE A DAY 200 Tablet 2 07/11/2023 07/10/2024 Active Simvastatin 20 MG Oral Tablet (Zocor)Indications :Hyperlipidemia with target LDL less than 100 TAKE 1 TABLET BY MOUTH EVERY NIGHT AT BEDTIME 100 Tablet 2 08/26/2022 07/10/2023 Discontinued (Refill) Famotidine 20 MG Oral Tablet (Pepcid)Indication s:Gastroesophageal reflux disease with esophagitis without hemorrhage TAKE ONE TABLET BY MOUTH TWICE A DAY 200 Tablet 2 08/26/2022 07/10/2023 Discontinued (Refill) documented as of this encounter (statuses as of 07/11/2023) Active Problems Problem Noted Date Diagnosed Date Prediabetes 04/16/2021 Overview: Per Prediabetes protocol Chronic kidney disease, stage 3a 12/12/2020 Overview: Per CKD protocol Hypertensive kidney disease with stage 3a chronic kidney disease 08/17/2020 Primary hypertension 04/29/2016 ADVANCE DIRECTIVE INFORMATION 09/13/2005 Overview: No, Advance Directive brochure given to patient. BENIGN HYPERTENSION Overview: Modified per HTN Taxonomy. Gastroesophageal reflux dise ase with esophagitis without hemorrhage Hyperlipidemia with target LDL less than 100 Overview: ICD-10 update of inactive term documented as of this encounter (statuses as of 07/11/2023) Resolved Problems Problem Noted Date Diagnosed Date [...] 02/15/200408/05 Screening for prostate cancer 12/25/2000 08/29/2008 PURE HYPERCHOLESTEROLEM 03/2009 Overview: Per Lipid Taxonomy. Dermatophytosis of nail 05/04 HTN, goal below 130/80 10/18 HTN, goal below 140/90 04/29 Benign hypertension with CKD (chronic kidney disease) stage III 08/17/2020 documented as of this encounter (statuses as of 07/11/2023) Immunizations Name Administration Dates Next Due COVID-19 [...] encounter Miscellaneous Notes * Telephone Encounter - Alexei Coburn [facility] - 07/11/2023 7:49 AM ESTSigned Prescriptions: Disp Refills Simvastatin 20 MG Oral Tablet (Zocor) 100 Ta*2 Sig: TAKE 1 TABLET BY MOUTH EVERY NIGHT AT BEDTIMEAuthorizing Provider: MANINDER GUO User: ALEXEI CHILD Famotidine 20 MG Oral Tablet (Pepcid) 200 Ta*2 Sig: TAKE ONE TABLET BY MOUTH TWICE A DAYAuthorizing Provider: MANINDER GUO User: ALEXEI CHILD documented in this encounter Plan of Treatment Upcoming Encounters Date Type Department Care Team (Late st Contact Info) Description 08/07/2023 8:40 AM EST Office Visit Family Medicine [address] [place] [phone] Margaret Maurice MD [address] [place] [address] [place] [phone] 03/08/2024 8:40 AM EDT Office Visit Dermatology [address] [place] [phone] Char Cruz PA-C [address] [place] [address] [place] [phone] 04/15/2024 9:00 AM EDT Nurse Only Ancillary [address] [place] [phone] [place], Nurse Annual [address] [place] [phone] Scheduled Procedures Name Priority Associated Diagnoses Date/Ti me COLONOSCOPY FLEXIBLE PROXIMA L DIAGNOSTIC Recall Family history of colon cancer Personal history of colonic polyps Health Maintenance Due Date Last Done Comments COVID-19 Vaccine ( season) 2023 11/10/2020, 10/13/2020 Influenza Vaccine (FLU shot) (#1) 2023 05/22/2017 (Refused) DTaP,Tdap,and Td Vaccines (3 - Td or Tdap) 05/11/2023 05/11/2013, 03/02/2010, 11/05/2004 CKD PHOS USE SMARTSET 77483 08/26/202308/05, 02/19/2021, 08/17/2020, Additional history exists GFR 08/27/2023 02/24/2023, 08/05, 02/20/2022, Additional history exists Albumin/Creatinine Ratio 02/25/2024 023, 02/20/2022, 02/19/2021, Additional history exists CKD HGB USE SMARTSET 94537 02/25/202402/24, 02/24/2023, 08/26/2022, Additional history exists HbA1c [...] this encounter Medical Devices Implanted Type Area Ring Attacher Device Identifier Shelf Expiration Date Model / Serial / Lot Fibertak Button Implant Implanted:Qty: 1 on 09/04/2020 by Daniel Khan, at OR [facility] Right: Shoulder [employer] 03/03/2024 AR-3680 / / [id number] documented as of this encounter Visit Diagnoses Diagnosis Hyperlipidemia with target LDL less than 100 Other and unspecified hyperlipidemia Gastroesophageal reflux disease with esophagitis without hemorrhage documented in this encounter Advance Directives Latest Code Status on File Code Status Date Activated Date Inactivated Comments Full Code 09/04/2020 9:58 AM 09/04/2020 6:40 PM This or sushma reflects the patients wishes and were consensually agreed upon. Care Teams Car Wiper Relationship Specialty Start Date End Date Margaret Maurice MD [address] [place] [address] [place] [phone] PCP - General Family Medicine 08/26/22 documented as of this encounter
--- OUTSIDE RECORDS SUMMARY | 2023-11-14 18:07 | External Medical Summary | Summary of Care ---
Author Name Unknown Organization [facility] Address [address] [facility] [place] [address] Phone [phone] Care Team Providers Care Steam Plant Records Clerk Name Role Phone Margaret Maurice MD Primary Care Provide r Reason for Visit * Reason Onset Date Comments Health Maintenance 09/11/2023 Encounter Details Date Type Department Care Team (Late st Contact Info) Description 09/11/2023 Telephone Family Medicine [address] [place] [address] Margaret Maurice MD [address] [place] [address] [place] [phone] Health Maintenance Allergies Active Allergy Reactions Criticality Noted Date Comments Propofol Seizure High 10/28/2011 documented as of this encounter (statuses as of 09/11/2023) Medications Medication Sig Dispensed Refills Start Date [...] as of this encounter (statuses as of 09/11/2023) Active Problems Problem Noted Date Diagnosed Date [...] as of this encounter (statuses as of 09/11/2023) Resolved Problems Problem Noted Date Diagnosed Date [...] as of this encounter (statuses as of 09/11/2023) Immunizations Name Administration Dates Next Due COVID-19 [...] encounter Miscellaneous Notes * Telephone Encounter - Eugenia Carrillo LPN - 09/11/2023 12:29 PM EST Care Gaps Comprehensive Care Outreach Last Office/Telemedicine Visit: 08/07/2023 (in office), Visit date not found (telemedicine) Next Office Visit: 02/06/2024 Hemoglobin AIC Results: Lab Results Component Value Date/Time HEMOGLOBIN A1C - [facility] 5.8 (H) 02/24/2023 11:13 AM HEMOGLOBIN A1C - [facility] 5.7 (H) 02/20/2022 08:15 AM HEMOGLOBIN A1C - [facility] 5.7 (H) 06/22/2021 08:07 AM BP Readings from Last 1 Encounters: 08/07/23 136/74 Reviewed Health Maintenance below: Health Maintenance Topic Date Due Influenza Vaccine (FLU shot) (1) 04/04/2023 COVID-19 Vaccine (3 - 2022- season) 2023 DTaP,Tdap,and Td Vaccines (3 - Td or Tdap) 05/11/2023 CKD PHOS USE SMARTSET 13173 08/26/2023 GFR 02/05/2024 Albumin/Creatinine Ratio 02/25/2024 HbA1c 02/25/2024 CKD HGB USE SMARTSET 11122 02/25/2024 Awv already done labs Care Gap Outreach Action Taken: Unable to reach documented in this encounter Plan of Treatment Upcoming Encounters Date Type Department Care Team (Late st Contact Info) Description 02/06/2024 8:20 AM EDT Office Visit Family Medicine [address] [place] [phone] Margaret Maurice MD [address] [place] [address] [place] [phone] 03/08/2024 8:40 AM EDT Office Visit Dermatology [address] [place] [phone] Char Cruz PA-C [address] [place] [address] [place] [phone] 04/15/2024 9:00 AM EDT Nurse Only Ancillary [address] [place] [phone] [place], Nurse Annual [address] [place] [phone] Scheduled Procedures Name Priority Associated Diagnoses Date/Ti me COLONOSCOPY FLEXIBLE PROXIMA L DIAGNOSTIC Recall Family history of colon cancer Personal history of colonic polyps Health Maintenance Due Date Last Done Comments COVID-19 Vaccine ( season) 2023 11/10/2020, 10/13/2020 Influenza Vaccine (FLU shot) (#1) 2023 05/22/2017 (Refused) DTaP,Tdap,and Td Vaccines (3 - Td or Tdap) 05/11/2023 05/11/2013, 03/02/2010, 11/05/2004 CKD PHOS USE SMARTSET 95730 08/26/202308/05, 02/19/2021, 08/17/2020, Additional history exists GFR 02/05/2024 08/07/2023, 02/02, 08/26/2022, Additional history exists Albumin/Creatinine Ratio 02/25/2024 023, 02/20/2022, 02/19/2021, Additional history exists CKD HGB USE SMARTSET 79697 02/25/202402/24, 02/24/2023, 08/26/2022, Additional history exists HbA1c [...] this encounter Medical Devices Implanted Type Area Gravity Prospecting Observer Helper Device Identifier Shelf Expiration Date Model / Serial / Lot Fibertak Button Implant Implanted:Qty: 1 on 09/04/2020 by Daniel Khan, at OR [facility] Right: Shoulder [employer] 03/03/2024 AR-3680 / / [id number] documented as of this encounter Advance Directives Latest Code Status on File Code Status Date Activated Date Inactivated Comments Full Code 09/04/2020 9:58 AM 09/04/2020 6:40 PM This or sushma reflects the patients wishes and were consensually agreed upon. Care Teams Steam Plant Records Clerk Relationship Specialty Start Date End Date Margaret Maurice MD [address] [place] [address] [place] [phone] PCP - General Family Medicine 08/26/22 documented as of this encounter
--- OUTSIDE RECORDS SUMMARY | 2023-11-14 18:07 | External Medical Summary ---
Author Name Unknown Address Unknown Organization K01:[facility] - [address] [facility] [address] Laboratory Report Ordering Provider Test Date Status ANIA PARRISH 08/07/2023 08:53:33 Margie l Observation Date Value Abnormality Reference (Units ) Status BUN 08/07/2023 08:53:33 32 Above high normal 6-20 (mg/dL) Final Creatinine 08/07/2023 08:53:33 1.4 Above high normal 0.6-1.2 (mg/dL) Final Glomerular filtration rate/1.73 sq M.predicted [Volume Rate/Area] in Serum, Plasma or Blood by Creatinine-based formula (CKD-EPI) 08/07/2023 08:53:33 52 Below low normal >=60 (mL/min) Final eGFR is calculated based on the CKD-EPI 2020 equation SODIUM 08/07/2023 08:53:33 141 135-146 (m mol/L) Final Potassium 08/07/2023 08:53:33 4.6 3.5-5.1 (m mol/L) Final Cl 08/07/2023 08:53:33 106 98-107 (mm ol/L) Final CO2 08/07/2023 08:53:33 24 22-32 (mmo l/L) Final Anion gap 08/07/2023 08:53:33 11 7-15 (mmol /L) Final Glucose 08/07/2023 08:53:33 64 Below low normal 70- 120 (mg/dL) Final Calcium 08/07/2023 08:53:33 9.2 8.4-10.2 ( mg/dL) Final Performing Location [facility] - [address] [place] [address]
--- OUTSIDE RECORDS SUMMARY | 2023-11-14 18:07 | External Medical Summary | Summary of Care ---
Author Name Unknown Organization [facility] Address [address] [facility] [place] [address] Phone [phone] Care Team Providers Care Tower Cleaner Name Role Phone Margaret Maurice MD Primary Care Provide r Reason for Visit * Reason Comments Medication Refill Encounter Details Date Type Department Care Team (Late st Contact Info) Description 10/08/2023 Refill Family Medicine [address] [place] [address] Margaret Maurice MD [address] [place] [address] [place] [phone] HTN, goal below 140/90 Allergies Active Allergy Reactions Criticality Noted Date [...] MORNING 100 Tablet 2 08/26/2022 10/21/2023 Active Simvastatin 20 MG Oral Tablet (Zocor)Indications :Hyperlipidemia with target LDL less than 100 TAKE 1 TABLET BY MOUTH EVERY NIGHT AT BEDTIME 100 Tablet 2 07/11/2023 07/10/2024 Active Famotidine 20 MG Oral Tablet (Pepcid)Indication s:Gastroesophageal reflux disease with esophagitis without hemorrhage TAKE ONE TABLET BY MOUTH TWICE A DAY 200 Tablet 2 07/11/2023 07/10/2024 Active amLODIPine Besylate 5 MG Oral Tablet (Norvasc)Indicatio ns:HTN, goal below 140/90 Take 1 Tablet by mouth in the morning. 90 Tablet 1 10/09/2023 Active amLODIPine Besylate 5 MG Oral Tablet (Norvasc)Indicatio ns:HTN, goal below 140/90 Take 1 Tablet by mouth in the morning. 90 Tablet 1 05/01/2023 10/08/2023 Discontinued (Refill) documented as of this [...] Miscellaneous Notes * Telephone Encounter - Alexei Mark [facility] - 10/09/2023 2:35 AM ESTSigned Prescriptions: Disp Refills amLODIPine Besylate 5 MG Oral Tablet (Norv*90 Tab*1 Sig: Take 1 Tablet by mouth in the morning.Authorizing Provider: Fartun MAURICE User: ALEXEI MRAK documented in this encounter Plan of Treatment Upcoming Encounters Date Type Department Care Team (Late st Contact Info) Description 02/06/2024 8:20 AM EDT Office Visit Family Medicine [address] [place] [phone] Margaret Maurice MD [address] [place] [address] [place] [phone] 03/08/2024 8:40 AM EDT Office Visit Dermatology [address] [place] [address] Char Cruz PA-C [address] [place] [address] [place] [phone] 04/15/2024 9:00 AM EDT Nurse Only Ancillary [address] [place] [phone] [place], Nurse Annual [address] [place] [phone] Scheduled Procedures Name Priority Associated Diagnoses Date/Ti me COLONOSCOPY FLEXIBLE PROXIMA L DIAGNOSTIC Recall Family history of colon cancer Personal history of colonic polyps Health Maintenance Due Date Last Done Comments COVID-19 Vaccine ( season) 2023 11/10/2020, 10/13/2020 Influenza Vaccine (FLU shot) (#1) 2023 05/22/2017 (Refused) DTaP,Tdap,and Td Vaccines (3 - Td or Tdap) 05/11/2023 05/11/2013, 03/02/2010, 11/05/2004 CKD PHOS USE SMARTSET 32830 08/26/202308/05, 02/19/2021, 08/17/2020, Additional history exists GFR 02/05/2024 08/07/2023, 02/02, 08/26/2022, Additional history exists Albumin/Creatinine Ratio 02/25/2024 023, 02/20/2022, 02/19/2021, Additional history exists CKD HGB USE SMARTSET 26846 02/25/202402/24, 02/24/2023, 08/26/2022, Additional history exists HbA1c [...] this encounter Medical Devices Implanted Type Area Cloth Bleaching Range Tender Device Identifier Shelf Expiration Date Model / Serial / Lot Biocomposite Swivelock Suture Gray Double Loaded Implanted:Qty: 3 on 09/04/2020 by Daniel Khan DO at OR [facility] Right: Shoulder [employer] 05/03/2022 AR-2324BCT -2 / / [id number] Biocomposite Knotless Swivelock Gray 4.75x19.1 Implanted:Qty: 1 on 09/04/2020 by Daniel Khan DO at OR [facility] Right: Shoulder [employer] 06/03/2024 AR-2324KBC CTT / / [id number] Biocomposite Knotless Swivelock Gray 4.75x19.1mm Implanted:Qty: 1 on 09/04/2020 by Daniel Khan DO at OR [facility] Right: Shoulder [employer] 06/03/[address] / / [id number] Fibertak Button Implant Implanted:Qty: 1 on 09/04/2020 by Daniel Khan DO at OR [facility] Right: Shoulder [employer] 03/03/2024 AR-3680 / / [id number] documented as of this encounter Visit Diagnoses Diagnosis HTN, goal below 140/90 Unspecified essential hypertension documented in this encounter Advance Directives Latest Code Status on File Code Status Date Activated Date Inactivated Comments Full Code 09/04/2020 9:58 AM 09/04/2020 6:40 PM This or sushma reflects the patients wishes and were consensually agreed upon. Care Teams Tower Cleaner Relationship Specialty Start Date End Date Margaret Maurice MD [address] [place] [address] [place] [phone] PCP - General Family Medicine 08/26/22 documented as of this encounter
--- OUTSIDE RECORDS SUMMARY | 2023-11-14 18:07 | External Medical Summary | Summary of Care ---
Author Name Unknown Organization [facility] Address [address] [facility] [place] [address] Phone [phone] Care Team Providers Care Wildlife Biology Technician Name Role Phone Margaret Maurice MD Primary Care Provide r Reason for Visit * Reason Comments Outpatient Testing Encounter Details Date Type Department Care Team (Late st Contact Info) Description 08/07/2023 9:20 AM EST Laboratory Laboratory [address] [place] [phone] [place] [id number] Arrived Allergies Active Allergy Reactions Criticality Noted Date [...] on file documented as of this encounter Plan of Treatment Upcoming Encounters Date Type Department Care Team (Late st Contact Info) Description 02/06/2024 8:20 AM EDT Office Visit Family Medicine [address] [place] [phone] Margaret Maurice MD [address] [place] [address] [place] [phone] 03/08/2024 8:40 AM EDT Office Visit Dermatology [address] [place] [phone] Char Cruz PA-C [address] [place] [address] [place] [phone] 04/15/2024 9:00 AM EDT Nurse Only Ancillary [address] [place] [phone] [place], Nurse Annual Wellness [address] [place] [address] [place] [phone] Scheduled Procedures Name Priority Associated Diagnoses Date/Ti me COLONOSCOPY FLEXIBLE PROXIMA L DIAGNOSTIC Recall Family history of colon cancer Personal history of colonic polyps Health Maintenance Due Date Last Done Comments COVID-19 Vaccine (2022- season) 2023 11/10/2020, 10/13/2020 Influenza Vaccine (FLU shot) (#1) 2023 05/22/2017 (Refused) DTaP,Tdap,and Td Vaccines (3 - Td or Tdap) 05/11/2023 05/11/2013, 03/02/2010, 11/05/2004 CKD PHOS USE SMARTSET 46289 08/26/202308/05, 02/19/2021, 08/17/2020, Additional history exists GFR 08/27/2023 02/24/2023, 08/05, 02/20/2022, Additional history exists Albumin/Creatinine Ratio 02/25/2024 023, 02/20/2022, 02/19/2021, Additional history exists CKD HGB USE SMARTSET 48512 02/25/202402/24, 02/24/2023, 08/26/2022, Additional history exists HbA1c [...] this encounter Medical Devices Implanted Type Area Side Show Entertainer Device Identifier Shelf Expiration Date Model / Serial / Lot [employer]ertak Button Implant Implanted:Qty: 1 on 09/04/2020 by Daniel Khan, DO at OR [facility] Right: Shoulder [employer] 03/03/2024 [id number] / / [id number] documented as of this encounter Advance Directives Latest Code Status on File Code Status Date Activated Date Inactivated Comments Full Code 09/04/2020 9:58 AM 09/04/2020 6:40 PM This or sushma reflects the patients wishes and were consensually agreed upon. Care Teams Wildlife Biology Technician Relationship Specialty Start Date End Date Margaret Maurice MD [address] [place] [address] [place] [phone] PCP - General Family Medicine 08/26/22 documented as of this encounter
[2023-11-14] MEDS ORDERED: TAMSULOSIN HCL 0.4 MG CAP PO SCH (21:00)
== END 2023-11-14 11:12 | disposition home or self-care (01) ==
LOC: 3N 15:57 → ED 15:57 → SUATTDRO 18:58 → 3N 21:30